=== PATIENT | female | born 1935 | race Caucasian/White ===

== ENCOUNTER 2016-11-01 13:49 | Inpatient (IN) | payer OTHER, BC ==
[~2016-11-01] VITALS: Ht 157.5 cm; Wt 60.9 kg
[2016-11-01] MEDS ORDERED: SODIUM CHLORIDE 0.9% 1000ML 1,000 ML IV STA (14:12)
--- NOTE | 2016-11-01 15:06 | DIAGNOSTIC IMAGING REPORT ---
TWO VIEW CHEST CLINICAL HISTORY: Dyspnea. Fever. FINDINGS: AP and lateral chest radiographs are obtained. No prior studies are available for comparison at the time of dictation. The AP view is severely degraded by patient rotation. The heart appears enlarged and there is atherosclerotic calcification of the thoracic aorta. A large hiatal hernia is suspected. A portion of the colon projects over the left lung base. There is left basilar airspace consolidation. Airspace opacities are also identified at the right lung base. Small pleural effusions are identified. There is no pneumothorax. The skeletal structures are osteopenic. The bony thorax appears intact. Degenerative change and scoliosis are noted in the thoracic spine. IMPRESSION: 1. Suspect a large hiatal hernia. 2. There is left basilar airspace consolidation. Correlated clinically for evidence of pneumonia. Radiographic follow-up to resolution is recommended. 3. There are milder airspace opacities also seen at the right lung base which could represent atelectasis versus pneumonia. 4. Small pleural effusions are noted. Electronically signed by: Edwin Curry M.D. 11/01/2016 3:05 PM Dictated Date/Time: 11/01/2016 3:03 PM
[2016-11-01] MEDS ORDERED: [UNRECOGNIZED DRUG - CODE] PV (15:27)
[2016-11-01] MEDS ORDERED: CYNI1000 SQ (15:27)
[2016-11-01] MEDS ORDERED: [UNRECOGNIZED DRUG - CODE] TOP (15:27)
[2016-11-01] MEDS ORDERED: CEFEPIME IV 1,000 MG in DEXTROSE 5% 100ML 100 ML IV STA (15:28)
[2016-11-01] MEDS ORDERED: LEVAQUIN 500MG / 100ML D5W IV ONE (15:30)
[2016-11-01 15:54] LABS: COMPLETE YES; HEMATOCRIT 40.3 % (37-47); LYMPH % 20.4 %; LYMPH ABS # 1.13 K/uL (1.2-3.4); MEAN CELL VOLUME 90.4 fL (80-100); MEAN CORPUSCULAR HEMOGLOBIN 30.7 pg (25-34); MEAN PLATELET VOLUME 10.1 fL (7.4-10.4); MONO % 17.7 %; NEUT % 61.9 %; PLATELET COUNT 199 K/uL (130-400); RED BLOOD COUNT 4.46 M/uL (4.2-5.4); WHITE BLOOD COUNT 5.55 K/uL (4.8-10.8)
[2016-11-01 16:02] LABS: PARTIAL THROMBOPLASTIN RATIO 1.1; PROTHROMBIN TIME (PATIENT) 10.7 SECONDS (9.0-12.0)
[2016-11-01 16:14] LABS: BUN/CREATININE RATIO 14.1 (10-20); CALCIUM 8.1 mg/dl (8.5-10.1); CREATININE 0.87 mg/dl (0.60-1.20); POTASSIUM 3.9 mmol/L (3.5-5.1)
[2016-11-01 16:19] LABS: ALB/GLOB RATIO 0.8 (0.9-2)
[2016-11-01 16:54] LABS: URINE APPEARANCE CLEAR (CLEAR); URINE BILIRUBIN NEG (NEG); URINE COLOR DK YELLOW; URINE EPITHELIAL CELL AUTO >30 /lpf (0-5); URINE NITRITE NEG (NEG); URINE PH 5.5 (4.5-7.5); URINE SPECIFIC GRAVITY 1.014 (1.000-1.030); UROBILINOGEN NEG (NEG)
[2016-11-01 16:56] LABS: MANUAL MICROSCOPIC REQUIRED? NO; REVIEW REQ? YES
[2016-11-01] MEDS ORDERED: MAGNESIUM HYDROXIDE SUSP 30 ML UDC PO PRN (17:30)
[2016-11-01] MEDS ORDERED: SODIUM CHLORIDE 0.9% 500ML 500 ML IV SCH (17:30)
[2016-11-01] MEDS ORDERED: ACETAMINOPHEN 325 MG TAB PO PRN (17:30)
[2016-11-01] MEDS ORDERED: POLYETHYLENE (MIRALAX) 17 GM PACK PO PRN (17:30)
[2016-11-01] MEDS ORDERED: ALBUT/IPRATROP 3MG/0.5MG NEB 3 ML VIAL INH PRN (17:30)
[2016-11-01] MEDS ORDERED: ONDANSETRON INJ 2 MG/ML 2 ML VIAL IV PRN (17:30)
[2016-11-01] MEDS ORDERED: ALUMINUM/MAGNESIUM/SIMETH (MAALOX MAX) 30 ML UDC PO PRN (17:30)
[2016-11-01] MEDS ORDERED: ACETAMINOPHEN IV 100 ML IV PRN (17:45)
--- NOTE | 2016-11-01 18:02 | History and Physical ---
History & Physical Date & Time of Service: Nov 01, 2016 at 17:33 Chief Complaint: Cough,Fever Primary Care Physician: No Doctor, Assigned History of Present Illness Source: family Ms. Duarte is an 81 y/o female with PMHx of Dementia, NICHO, Breast CA S/P Lumpectomy and in Remission, and S/P Hysterectomy on Topical Hormone Replacements who presents to the ED for a cough, generalized fatigue, and altered mental status since Monday. History obtained from daughter as patient is asleep and minimally wakes up. Daughter states patient was visiting family in [place] last week and was around family members that had URI symptoms. On Monday, she started to have a dry cough that started to become more loose yesterday but she is not coughing anything out. She has progressively gotten weaker over the past couple days and less interactive. Baseline mentation has underlying dementia but is conversational, feeds herself, and ambulates. Associated rhinorrhea and fever that peaked to 100.7 but is improving per family. Had one episode of brown diarrhea today and denies hematochezia/melena. Family feels that she has generalized aches as she is has been saying "ouch" with movements but they are not sure. They state she has not taken in a lot of food or drink and have been spoon feeding her smoothies. They do report a H/O sleep apnea that she used to use BiPAP/CPAP but lost approx 20-30 lbs in a year intentionally with changing to a clean/ketogenic/low carb/gluten free diet and currently not using BiPAP/CPAP at night. In the ED, patient is afebrile and without leukocytosis. She is hypotensive at 90s/60s. She received NSS 1 L and Cefepime. CXR shows L basilar consolidation with mild R lung base opacity. Past Medical/Surgical History Medical Problems: (1) Arthritis Status: Chronic (2) Dementia Status: Chronic Family History Deferred due to AMS Social History Smoking Status: Never Smoker Smokeless Tobacco Use: No Alcohol Use: none Drug Use: none Housing status: lives with family Allergies Coded Allergies: Ceepryn Chloride (Verified Allergy, Unknown, unknown, 11/01/16) Donepezil (Verified Allergy, Unknown, rash, 11/01/16) Moxifloxacin (Verified Allergy, Unknown, unknown, 11/01/16) Home Medications Scheduled Cyanocobalamin (Cyanocobalamin), 1 ML SQ WK Estradiol (Bulk) (Estradiol Concentrate), 1 DOSE PV DIRECTED Progesterone (Bulk) (Progesterone Concentrate), 1 DOSE TOP BID Review of Systems ROS deferred as patient is altered. Per family only complaint was of a vague upset stomach yesterday and an intermittently moist cough. They report fever that peaked at 100.7 Physical Exam Vital Signs Date Time Temp Pulse Resp B/P (MAP) Pulse Ox O2 Delivery O2 Flow Rate FiO2 11/01/16 16:19 92 Nasal Cannula 2.0 11/01/16 16:19 92 Nasal Cannula 2.0 11/01/16 15:40 55 18 98/53 93 Room Air 11/01/16 14:07 76 11/01/16 13:50 37.2 82 20 99/62 90 Room Air General Appearance: no apparent distress, + thin Head: normocephalic, atraumatic Neck: supple, no JVD, trachea midline Respiratory/Chest: no respiratory distress, no accessory muscle use, + decreased breath sounds (throughout), + pertinent finding (course breath sounds hard to appreciate full assessmnet) Cardiovascular: regular rate, rhythm, no gallop, no murmur Abdomen/GI: normal bowel sounds, soft, + pertinent finding (unsure of tenderness as patient withdrew when palpating jones. suprapubically but did the same when assessing for lymphadenopathy of the neck) Extremities/Musculoskelatal: no calf tenderness, no pedal edema Neurologic/Psych: + pertinent finding (somnolent) Skin: normal color, warm/dry Diagnostics Laboratory Results Results Past 24 Hours Test 11/01/16 15:06 11/01/16 16:30 11/01/16 17:16 Range/Units White Blood Count 5.55 4.8-10.8 K/uL Red Blood Count 4.46 4.2-5.4 M/uL Hemoglobin 13.7 12.0-16.0 g/dL Hematocrit 40.3 37-47 % Mean Corpuscular Volume 90.4 80-100 fL Mean Corpuscular Hemoglobin 30.7 25-34 pg Mean Corpuscular Hemoglobin Concent 34.0 32-36 g/dl Platelet Count 199 130-400 K/uL Mean Platelet Volume 10.1 7.4-10.4 fL Neutrophils (%) (Auto) 61.9 % Lymphocytes (%) (Auto) 20.4 % Monocytes (%) (Auto) 17.7 % Eosinophils (%) (Auto) 0.0 % Basophils (%) (Auto) 0.0 % Neutrophils # (Auto) 3.44 1.4-6.5 K/uL Lymphocytes # (Auto) 1.13 1.2-3.4 K/uL Monocytes # (Auto) 0.98 0.11-0.59 K/uL Eosinophils # (Auto) 0.00 0-0.5 K/uL Basophils # (Auto) 0.00 0-0.2 K/uL RDW Standard Deviation 45.5 36.4-46.3 fL RDW Coefficient of Variation 13.7 11.5-14.5 % Immature Granulocyte % (Auto) 0.0 % Immature Granulocyte # (Auto) 0.00 0.00-0.02 K/uL Prothrombin Time 10.7 9.0-12.0 SECONDS Prothromb Time International Ratio 1.0 0.9-1.1 Activated Partial Thromboplast Time 29.5 21.0-31.0 SECONDS Partial Thromboplastin Ratio 1.1 Sodium Level 138 136-145 mmol/L Potassium Level 3.9 3.5-5.1 mmol/L Chloride Level 102 98-107 mmol/L Carbon Dioxide Level 28 21-32 mmol/L Anion Gap 8.0 3-11 mmol/L Blood Urea Nitrogen 12 7-18 mg/dl Creatinine 0.87 0.60-1.20 mg/dl Est Creatinine Clear Calc Drug Dose 44.3 ml/min Estimated GFR () 72.9 Estimated GFR (Non- 62.9 BUN/Creatinine Ratio 14.1 10-20 Random Glucose 90 70-99 mg/dl Calcium Level 8.1 8.5-10.1 mg/dl Total Bilirubin 0.3 0.2-1 mg/dl Aspartate Amino Transf (AST/SGOT) 49 15-37 U/L Alanine Aminotransferase (ALT/SGPT) 28 12-78 U/L Alkaline Phosphatase 51 45-117 U/L Troponin I 0.019 0-0.045 ng/ml Pro-B-Type Natriuretic Peptide 502 0-1800 pg/ml Total Protein 6.3 6.4-8.2 gm/dl Albumin 2.8 3.4-5.0 gm/dl Globulin 3.5 2.5-4.0 gm/dl Albumin/Globulin Ratio 0.8 0.9-2 Urine Color DK YELLOW Urine Appearance CLEAR CLEAR Urine pH 5.5 4.5-7.5 Urine Specific [place] 1.014 1.000-1.030 Urine Protein NEG NEG Urine Glucose (UA) NEG NEG Urine Ketones NEG NEG Urine Occult Blood NEG NEG Urine Nitrite NEG NEG Urine Bilirubin NEG NEG Urine Urobilinogen NEG NEG Urine Leukocyte Esterase TRACE NEG Urine WBC (Auto) 1-5 0-5 /hpf Urine RBC (Auto) 0-4 0-4 /hpf Urine Hyaline Casts (Auto) 1-5 0-5 /lpf Urine Epithelial Cells (Auto) >30 0-5 /lpf Urine Bacteria (Auto) NEG NEG Urine Renal Epithelial Cells 0-5 /lpf Microbiology Results 11/01/16 Blood Culture, Gee Batch Pending 11/01/16 Blood Culture, Gee Batch Pending 11/01/16 Urine Culture, Gee Batch Pending Diagnostic Radiology TWO VIEW CHEST FINDINGS: AP and lateral chest radiographs are obtained. No prior studies are available for comparison at the time of dictation. The AP view is severely degraded by patient rotation. The heart appears enlarged and there is atherosclerotic calcification of the thoracic aorta. A large hiatal hernia is suspected. A portion of the colon projects over the left lung base. There is left basilar airspace consolidation. Airspace opacities are also identified at the right lung base. Small pleural effusions are identified. There is no pneumothorax. The skeletal structures are osteopenic. The bony thorax appears intact. Degenerative change and scoliosis are noted in the thoracic spine. IMPRESSION: 1. Suspect a large hiatal hernia. 2. There is left basilar airspace consolidation. Correlated clinically for evidence of pneumonia. Radiographic follow-up to resolution is recommended. 3. There are milder airspace opacities also seen at the right lung base which could represent atelectasis versus pneumonia. 4. Small pleural effusions are noted. EKG Normal sinus rhythm Normal ECG No previous ECGs available Impression Assessment and Plan Ms. Duarte is an 81 y/o female with PMHx of Dementia, NICHO, Breast CA S/P Lumpectomy and in Remission, and S/P Hysterectomy on Topical Hormone Replacements who presents to the ED for a cough, generalized fatigue, and altered mental status since Monday. Bilateral Pneumonia with Hypotension: Community Acquired - Patient is currently afebrile and without leukocytosis - Will order lactic acid and BCx x 2 - will be skewed as Abx already initiated - Ceftriaxone 1 g IV daily and Zithromax 500 mg IV x 1 then 250 mg daily - Given NSS 1 L in ED - will give NSS 500 mL bolus and NSS at 100 mL/hr x 3 bags - Duonebs ALAN and PRN Metabolic Encephalopathy 2/2 Above Superimposed on Dementia: - Continue to monitor Acute Hypoxic Respiratory Failure with NICHO: - Previously on BiPAP/CPAP but lost weight and currently does not utilize - Possibly hypoxic episode related to this as patient is sleeping during examination DVT Prophylaxis: Heparin 5000 units SC Q12H Code Status: DO NOT RESUSCITATE Disposition: - Monitor rhythm overnight and if uneventful can move to Med/Surg - Daughter requesting to stay with patient and implement 1:1 if family not at bedside due to confusion/pulling tubes - Daughter would like to avoid medicinal means to control agitation/delirium but is agreeable to soft restraints if needed - PT/OT evaluations - patient does live with daughter is normally ambulatory without assistive devices but has a shuffling gait Resident Physician Supervision Note: I was present with PA during the history and exam. I discussed the case with the PA and agree with the findings and plan as documented in the note. Any exceptions or clarifications are listed here: 81 y/o F dementia, NICHO presenting with AMS - lethargy - imaging/labs consistent with acute CAP Unable to obtain Hx from pt - daughter at bedside to provide Hx O/E AAO x 3 S1,2 R - faint Very poor effort - limited exam NT, ND No CCE - pulses present P: Supportive measures - daughter to remain with ot Antibiotics, IVF, scheduled duonebs as she cannot reliably c/o SOB Above discussed with daughter at bedside Documented By: Luigi Prieto Level of Care Telemetry Resuscitation Status DO NOT RESUSCITATE VTE Prophylaxis VTE Risk Assessment Done? Y/N: Yes Risk Level: Moderate Given or contraindicated: Unfractionated heparin SQ
--- NOTE | 2016-11-01 18:12 | EMERGENCY ROOM VISIT NOTE ---
History Report prepared by Lopez: Jens Mckeon Under the Supervision of: Dr. Dimas Huertas D.O. First contact with patient: 13:58 Chief Complaint: COUGH Stated Complaint: COUGH,FEVER Nursing Triage Summary: pt to the ED with a cough since monday here with daughter who she lives with pt has been gettin more weak as well History of Present Illness The patient is a 81 year old female who presents to the Emergency Room with complaints of a persistent illness beginning two days ago. Her symptoms include weakness, fatigue, fevers, runny nose, and cough. Per daughter, the patient has not been talking or interacting much. She states that the patient appears much less alert than normal. She states that the patient's fever peaked at 101 degrees yesterday. The patient's daughter notes that the patient recently returned from a trip to [place] last week. She denies any sore throats. She states that the patient has not been eating much unless spoon feed. The patient's daughter notes that the patient has chronic pain in her knee and hip. The patient denies any chest pain, abdominal pain, urinary symptoms, or headache. HPI limited secondary to dementia. Source of History: patient, family (daughter) Onset: Two days ago Quality: other (illness) Timing: other (persistent) Associated Symptoms: + fevers (101 degrees), + cough, + fatigue, + weakness , No headache, No sorethroat, No chest pain, No abdominal pain, No urinary symptoms Note: The patient also complains of runny nose. She denies any ear pain. Review of Systems ROS limited secondary to dementia. Past Medical & Surgical Medical Problems: (1) Arthritis (2) Dementia (3) Pneumonia Family History Unobtainable secondary to dementia. Social History Occupation Status: retired Current/Historical Medications Scheduled Cyanocobalamin (Cyanocobalamin), 1 ML SQ WK Estradiol (Bulk) (Estradiol Concentrate), 1 DOSE PV DIRECTED Progesterone (Bulk) (Progesterone Concentrate), 1 DOSE TOP BID Allergies Coded Allergies: Ceepryn Chloride (Unverified Allergy, Unknown, unknown, 11/01/16) Donepezil (Unverified Allergy, Unknown, rash, 11/01/16) Moxifloxacin (Verified Allergy, Unknown, unknown, 11/01/16) Physical Exam Vital Signs Date Time Temp Pulse Resp B/P (MAP) Pulse Ox O2 Delivery O2 Flow Rate FiO2 7/11/17 17:29 71 18 96/72 93 Nasal Cannula 2.0 11/01/16 16:19 92 Nasal Cannula 2.0 11/01/16 16:19 92 Nasal Cannula 2.0 11/01/16 15:40 55 18 98/53 93 Room Air 11/01/16 14:07 76 11/01/16 13:50 37.2 82 20 99/62 90 Room Air Physical Exam GENERAL: Chronically ill appearing. Sitting up in bed, disheveled, no acute distress. EYE EXAM: normal conjunctiva, PERRL and EOM's intact OROPHARYNX: no exudate, no erythema, lips, buccal mucosa, and tongue normal and mucous membranes are dry NECK: supple, no nuchal rigidity, no adenopathy, non-tender LUNGS: Poor air movement. Diminished bilaterally at the bases. HEART: no murmurs, S1 normal and S2 normal ABDOMEN: abdomen soft, non-tender, normo-active bowel sounds, no masses, no rebound or guarding. BACK: Back is symmetrical on inspection and there is no deformity, no midline tenderness, no CVA tenderness. SKIN: no rashes and no bruising UPPER EXTREMITIES: upper extremities are grossly normal. LOWER EXTREMITIES: No pitting edema. Calves equal bilaterally. NEURO EXAM: alert able to state name, cranial nerves II-XII intact, normal speech, no weakness of arms, no weakness of legs. Medical Decision & Procedures ER Provider Diagnostic Interpretation: Radiology results as stated below per my review and the radiologist's interpretation: TWO VIEW CHEST FINDINGS: AP and lateral chest radiographs are obtained. No prior studies are available for comparison at the time of dictation. The AP view is severely degraded by patient rotation. The heart appears enlarged and there is atherosclerotic calcification of the thoracic aorta. A large hiatal hernia is suspected. A portion of the colon projects over the left lung base. There is left basilar airspace consolidation. Airspace opacities are also identified at the right lung base. Small pleural effusions are identified. There is no pneumothorax. The skeletal structures are osteopenic. The bony thorax appears intact. Degenerative change and scoliosis are noted in the thoracic spine. IMPRESSION: 1. Suspect a large hiatal hernia. 2. There is left basilar airspace consolidation. Correlated clinically for evidence of pneumonia. Radiographic follow-up to resolution is recommended. 3. There are milder airspace opacities also seen at the right lung base which could represent atelectasis versus pneumonia. 4. Small pleural effusions are noted. Electronically signed by: Edwin Curry M.D. Laboratory Results 11/01/16 15:06 Red Blood Count 4.46, Mean Corpuscular Volume 90.4, Mean Corpuscular Hemoglobin 30.7, Mean Corpuscular Hemoglobin Concent 34.0, Mean Platelet Volume 10.1, Neutrophils (%) (Auto) 61.9, Lymphocytes (%) (Auto) 20.4, Monocytes (%) (Auto) 17.7, Eosinophils (%) (Auto) 0.0, Basophils (%) (Auto) 0.0, Neutrophils # (Auto ) 3.44, Lymphocytes # (Auto) 1.13, Monocytes # (Auto) 0.98, Eosinophils # (Auto ) 0.00, Basophils # (Auto) 0.00 11/01/16 15:06 Test 11/01/16 15:06 11/01/16 16:30 11/01/16 17:55 White Blood Count 5.55 K/uL (4.8-10.8) Red Blood Count 4.46 M/uL (4.2-5.4) Hemoglobin 13.7 g/dL (12.0-16.0) Hematocrit 40.3 % (37-47) Mean Corpuscular Volume 90.4 fL (80-100) Mean Corpuscular Hemoglobin 30.7 pg (25-34) Mean Corpuscular Hemoglobin Concent 34.0 g/dl (32-36) Platelet Count 199 K/uL (130-400) Mean Platelet Volume 10.1 fL (7.4-10.4) Neutrophils (%) (Auto) 61.9 % Lymphocytes (%) (Auto) 20.4 % Monocytes (%) (Auto) 17.7 % Eosinophils (%) (Auto) 0.0 % Basophils (%) (Auto) 0.0 % Neutrophils # (Auto) 3.44 K/uL (1.4-6.5) Lymphocytes # (Auto) 1.13 K/uL (1.2-3.4) Monocytes # (Auto) 0.98 K/uL (0.11-0.59) Eosinophils # (Auto) 0.00 K/uL (0-0.5) Basophils # (Auto) 0.00 K/uL (0-0.2) RDW Standard Deviation 45.5 fL (36.4-46.3) RDW Coefficient of Variation 13.7 % (11.5-14.5) Immature Granulocyte % (Auto) 0.0 % Immature Granulocyte # (Auto) 0.00 K/uL (0.00-0.02) Prothrombin Time 10.7 SECONDS (9.0-12.0) Prothromb Time International Ratio 1.0 (0.9-1.1) Activated Partial Thromboplast Time 29.5 SECONDS (21.0-31.0) Partial Thromboplastin Ratio 1.1 Anion Gap 8.0 mmol/L (3-11) Est Creatinine Clear Calc Drug Dose 44.3 ml/min Estimated GFR () 72.9 Estimated GFR (Non- 62.9 BUN/Creatinine Ratio 14.1 (10-20) Calcium Level 8.1 mg/dl (8.5-10.1) Total Bilirubin 0.3 mg/dl (0.2-1) Aspartate Amino Transf (AST/SGOT) 49 U/L (15-37) Alanine Aminotransferase (ALT/SGPT) 28 U/L (12-78) Alkaline Phosphatase 51 U/L (45-117) Troponin I 0.019 ng/ml (0-0.045) Pro-B-Type Natriuretic Peptide 502 pg/ml (0-1800) Total Protein 6.3 gm/dl (6.4-8.2) Albumin 2.8 gm/dl (3.4-5.0) Globulin 3.5 gm/dl (2.5-4.0) Albumin/Globulin Ratio 0.8 (0.9-2) Urine Color DK YELLOW Urine Appearance CLEAR (CLEAR) Urine pH 5.5 (4.5-7.5) Urine Specific [place] 1.014 (1.000-1.030) Urine Protein NEG (NEG) Urine Glucose (UA) NEG (NEG) Urine Ketones NEG (NEG) Urine Occult Blood NEG (NEG) Urine Nitrite NEG (NEG) Urine Bilirubin NEG (NEG) Urine Urobilinogen NEG (NEG) Urine Leukocyte Esterase TRACE (NEG) Urine WBC (Auto) 1-5 /hpf (0-5) Urine RBC (Auto) 0-4 /hpf (0-4) Urine Hyaline Casts (Auto) 1-5 /lpf (0-5) Urine Epithelial Cells (Auto) >30 /lpf (0-5) Urine Bacteria (Auto) NEG (NEG) Urine Renal Epithelial Cells /lpf (0-5) Laboratory results per my review. Medications Administered Medications (Trade) Dose Ordered Sig/Wade Route Start Time Stop Time Status Last Admin Dose Admin Sodium Chloride 1,000 ml @ 999 mls/hr Q1H1M STAT IV 11/01/16 14:12 11/01/16 15:12 DC 11/01/16 15:04 999 MLS/HR Cefepime HCl 1000 mg/Dextrose 111.3 ml @ 200 mls/hr NOW STAT IV 11/01/16 15:28 11/01/16 16:01 DC 11/01/16 16:38 200 MLS/HR ECG Indication: weakness Rate (beats per minute): 76 Rhythm: sinus rhythm Findings: no ectopy, other (Normal axis) ED Course ED COURSE: Vital signs were reviewed and showed hypotension and hypoxia. The patients medical record was reviewed The above diagnostic studies were performed and reviewed. ED treatments and interventions as stated above. 1404: The patient was evaluated in room B10. A complete history and physical examination was performed. 1412: Ordered Sodium Chloride 1000 ml @ 999 mls/hr IV. 1528: Ordered Cefepime HCl 1000 mg/Dextrose 111.3 mL @ @ 200 mL/hr IV, Levaquin / D5W 500 mg IV. 1632: Upon reevaluation, the patient is resting comfortably. I discussed my findings with the patient and she understands and agrees with the treatment plan. Based on the patients age, coexisting illnesses, exam and lab findings the decision to treat as an inpatient was made. The patient remained stable while under my care. The patient will be evaluated for further management. Medical Decision Differential Diagnosis includes but is not limited to dehydration, stroke, anemia, hypoglycemia, hyponatremia, hypernatremia, urinary tract infection, pneumonia, bronchitis, sepsis, gastroenteritis, additional abdominal pathology, metabolic abnormalities and infections. Patient is an 81-year-old female who presents the ER for altered mental status associated with cough and runny nose and fever. Chest x-ray was obtained and shows bilateral pneumonia. Patient was hypotensive upon presentation with systolic pressures in the 90s. Patient was given IV fluids, and antibiotics. Following ordering Levaquin daughter eventually was able to ascertain from previous records that she was holding the patient had an allergy. Labs were otherwise fairly unremarkable. Family was updated bedside patient was admitted to internal medicine with pneumonia. Consults Time Called: [phone] Consulting Physician: Dr. Prieto -MARGRET Returned Call: [phone] I reviewed the patient's case with Dr. Prieto. MATTEOG will evaluate the patient for further management. Impression Primary Impression: Bilateral pneumonia Additional Impressions: Hypotension Altered mental status Scribe Attestation The scribe's documentation has been prepared under my direction and personally reviewed by me in its entirety. I confirm that the note above accurately reflects all work, treatment, procedures, and medical decision making performed by me. Departure Information Dispostion Being Evaluated By Hospitalist Referrals Tejas Swenson M.D. (PCP) Patient Instructions My [facility] Problem Qualifiers Primary Impression: Bilateral pneumonia Pneumonia type: due to unspecified organism Lung location: unspecified part of lung Qualified Codes: J18.9 - Pneumonia, unspecified organism Additional Impressions: Hypotension Hypotension type: unspecified hypotension type Qualified Codes: I95.9 - Hypotension, unspecified Altered mental status Altered mental status type: unspecified Qualified Codes: R41.82 - Altered mental status, unspecified
--- NOTE | 2016-11-01 19:05 | DIAGNOSTIC IMAGING REPORT ---
RIGHT PELVIS/UNILATERAL HIP 2-3VIEWS CLINICAL HISTORY: Right hip pain. Right hip inverted. COMPARISON: None FINDINGS: Positioning on the AP pelvis radiograph is suboptimal. There is cortical irregularity of the medial aspect of the right pubic bone adjacent to the symphysis pubis. No definite fracture is identified. Alignment right hip is anatomic. IMPRESSION: 1. No acute fracture or dislocation of the right hip. 2. Subtle cortical irregularity of the medial right pubic bone which is equivocal for a fracture. Electronically signed by: Travis Nur M.D. 11/01/2016 7:04 PM Dictated Date/Time: 11/01/2016 7:01 PM
[2016-11-01] MEDS ORDERED: SODIUM CHLORIDE 0.9% 500ML 500 ML IV ONE (19:45)
[2016-11-01 19:53] VITALS: BP 108/60; PULSE 64; TEMP 37.1
[2016-11-01 19:54] VITALS: Ht 157.5 cm; Wt 60.9 kg
[2016-11-01] MEDS ORDERED: AZITHROMYCIN IV 500 MG in DEXTROSE 5% 250ML 250 ML IV ONE (20:00)
[2016-11-01] MEDS: HEPARIN SOD 5000 UNIT/0.5 ML CARP SQ SCH (21:00)
[2016-11-01 21:08] VITALS: PULSE 88; O2SAT 94
[2016-11-01] MEDS: SODIUM CHLORIDE 0.9% 1000ML 1,000 ML IV SCH (21:11)
[2016-11-01 22:05] VITALS: O2SAT 94
[2016-11-01 23:32] VITALS: BP 97/64; PULSE 76; TEMP 36.4; O2SAT 92
[2016-11-02] VITALS (10 sets, daily range): BP systolic 104–132; BP diastolic 62–77; PULSE 70–92; TEMP 36.6–37.1; O2SAT 90–98
[2016-11-02] MEDS: CEFTRIAXONE SOD INJ 1 GM in DEXTROSE 5% ADD-VANTAGE 50ML 50 ML IV SCH (02:45)
[2016-11-02] MEDS: SODIUM CHLORIDE 0.9% 1000ML 1,000 ML IV SCH ×2 (06:38→16:23)
[2016-11-02] MEDS: ALBUT/IPRATROP 3MG/0.5MG NEB 3 ML VIAL INH SCH ×4 (07:24→18:50)
--- NOTE | 2016-11-02 07:42 | Clinical Documentation Query ---
Ms. MONSONROBERTOCHESTERVEL : CLINICAL DOCUMENTATION QUERY Clinical documentation includes a diagnosis of: Acute Hypoxic Respiratory Failure. Additionally includes "no respiratory distress, no accessory muscle use". Patient was neither hypoxic nor tachypneic per EMR documentation available to this reader. No ABG obtained. Due to stringent requirements by our coding department, multiple clinical indicators associated with this diagnosis must be present in order for this to be coded/captured within the medical record. If appropriate, please document 2 or more of the following clinical indicators in daily progress notes and the discharge summary. If you feel the diagnosis of acute respiratory failure was made in error, or do not agree with it, simply discontinue documentation thereof. Acute Respiratory Failure indicators include: * Respirations >28 * Air hunger * Use of accessory muscles of respiration * Inability to speak in full sentences * Cyanosis * Pulse ox <90% RA or <95% on O2 *pH <7.35 or >7.45 * pO2 < 60 mm Hg (or 10mm below COPD patient's baseline) * pCO2 >50mm Hg (or 10mm above COPD patient's baseline) * mechanical ventilation * Increased work of breathing * Tachypnea IF IN AGREEMENT, YOU MUST DOCUMENT ABOVE DIAGNOSTIC STATEMENT IN DAILY PROGRESS NOTES AND DISCHARGE SUMMARY. This document is not part of the patient's record. Thank You, Jaylon Thomas, CARLO [phone]
[2016-11-02 07:49] LABS: HEMATOCRIT 38.5 % (37-47); MEAN CELL VOLUME 90.4 fL (80-100); MEAN CORPUSCULAR HEMOGLOBIN 30.8 pg (25-34); MEAN PLATELET VOLUME 9.8 fL (7.4-10.4); PLATELET COUNT 186 K/uL (130-400); RED BLOOD COUNT 4.26 M/uL (4.2-5.4); WHITE BLOOD COUNT 3.67 K/uL (4.8-10.8)
[2016-11-02 07:57] LABS: BUN/CREATININE RATIO 11.5 (10-20); CALCIUM 7.8 mg/dl (8.5-10.1); CREATININE 0.75 mg/dl (0.60-1.20); POTASSIUM 3.5 mmol/L (3.5-5.1)
[2016-11-02] MEDS ORDERED: PNEUMOCOCCAL ADMINISTRATION CHARGE ONE (08:00)
[2016-11-02] MEDS ORDERED: PNEUMOCOCCAL POLYSACCHARIDES 25 MCG/0.5 ML VIAL/SYR IM. ONE (08:00)
[2016-11-02] MEDS: HEPARIN SOD 5000 UNIT/0.5 ML CARP SQ SCH ×2 (09:00→21:00)
[2016-11-02] MEDS ORDERED: CARVEDILOL 3.125 MG TAB PO ONE (13:45)
[2016-11-02] MEDS: AZITHROMYCIN 250 MG TAB PO SCH (14:03)
--- NOTE | 2016-11-02 15:49 | Progress Note ---
Subjective Date of Service: Nov 02, 2016. Subjective pt is more alert and oriented, daughter at bedside. Pt uses humor to hide her forgetfulness, slight cough, still with [place] oxygen she did have symptomatic run of atrial tachycardia Problem List Medical Problems: (1) Altered mental status Status: Acute (2) Bilateral pneumonia Status: Acute (3) Hypotension Status: Acute Review of Systems Constitutional: + weakness, No fever, No chills Respiratory: + cough, + sputum, No shortness of breath, No dyspnea on exertion Cardiac: No chest pain, No orthopnea, No edema Abdomen: No pain, No nausea, No vomiting, No diarrhea Musculoskeletal: No joint pain, No muscle pain, No swelling Neurologic: + memory loss, + weakness Psychiatric: No depression symptoms, No anhedonism, No anxiety Objective Vital Signs Date Time Temp Pulse Resp B/P (MAP) Pulse Ox O2 Delivery O2 Flow Rate FiO2 11/02/16 12:30 Nasal Cannula 2.0 11/02/16 11:18 88 16 91 Nasal Cannula 1.0 11/02/16 11:18 36.7 92 16 108/69 (82) 92 Nasal Cannula 1.0 11/02/16 11:14 36.7 91 20 132/77 (95) 94 Room Air 11/02/16 07:45 Nasal Cannula 2.0 11/02/16 07:28 36.7 70 16 109/67 (81) 92 Room Air 11/02/16 07:15 90 16 91 Nasal Cannula 1.0 11/02/16 05:05 37.1 70 19 109/66 (80) 90 Nasal Cannula 2.0 11/02/16 04:00 Nasal Cannula 2.0 11/02/16 00:00 Nasal Cannula 2.0 11/01/16 23:32 36.4 76 19 97/64 (75) 92 Room Air 11/01/16 22:05 94 Nasal Cannula 2.0 11/01/16 21:08 88 16 94 Nasal Cannula 2.0 11/01/16 19:53 37.1 64 84 108/60 11/01/16 18:43 68 18 104/59 95 Nasal Cannula 2.0 11/01/16 17:29 71 18 96/72 93 Nasal Cannula 2.0 11/01/16 16:19 92 Nasal Cannula 2.0 11/01/16 16:19 92 Nasal Cannula 2.0 Physical Exam General Appearance: WD/WN, + mild distress Eyes: PERRL, EOMI Neck: supple, no JVD Respiratory/Chest: + decreased breath sounds, + rhonchi Cardiovascular: regular rate, rhythm, no murmur Abdomen: normal bowel sounds, non tender, soft Extremities: no pedal edema, no calf tenderness Neurologic/Psychiatric: alert, normal mood/affect Laboratory Results Last 24 Hours Test 11/01/16 16:30 11/01/16 17:55 11/01/16 23:18 11/02/16 07:05 Urine Color DK YELLOW Urine Appearance CLEAR Urine pH 5.5 Urine Specific [place] 1.014 Urine Protein NEG Urine Glucose (UA) NEG Urine Ketones NEG Urine Occult Blood NEG Urine Nitrite NEG Urine Bilirubin NEG Urine Urobilinogen NEG Urine Leukocyte Esterase TRACE Urine WBC (Auto) 1-5 /hpf Urine RBC (Auto) 0-4 /hpf Urine Hyaline Casts (Auto) 1-5 /lpf Urine Epithelial Cells (Auto) >30 /lpf Urine Bacteria (Auto) NEG Urine Renal Epithelial Cells /lpf Lactic Acid Level 1.4 mmol/L Troponin I 0.020 ng/ml White Blood Count 3.67 K/uL Red Blood Count 4.26 M/uL Hemoglobin 13.1 g/dL Hematocrit 38.5 % Mean Corpuscular Volume 90.4 fL Mean Corpuscular Hemoglobin 30.8 pg Mean Corpuscular Hemoglobin Concent 34.0 g/dl RDW Standard Deviation 45.2 fL RDW Coefficient of Variation 13.7 % Platelet Count 186 K/uL Mean Platelet Volume 9.8 fL Sodium Level 142 mmol/L Potassium Level 3.5 mmol/L Chloride Level 106 mmol/L Carbon Dioxide Level 29 mmol/L Anion Gap 7.0 mmol/L Blood Urea Nitrogen 9 mg/dl Creatinine 0.75 mg/dl Est Creatinine Clear Calc Drug Dose 47.3 ml/min Estimated GFR () 87.3 Estimated GFR (Non- 75.3 BUN/Creatinine Ratio 11.5 Random Glucose 86 mg/dl Calcium Level 7.8 mg/dl Assessment and Plan 81 F with pneumonia and toxic encephalopathy, with PMHx of Dementia, NICHO, Breast CA in remission since lumpectomy and treatment Bilateral Pneumonia - Ceftriaxone and Zithromax - Duonebs ALAN and PRN atrial tachycardia, maybe from physiologic stressor, will use one dose of coreg tonight and follow Metabolic Encephalopathy improved with treatment DVT Prophylaxis: Heparin 5000 units SC Q12H Code Status: DO NOT RESUSCITATE - PT/OT evaluations - patient does live with daughter is normally ambulatory without assistive devices
[2016-11-02] MEDS ORDERED: AZITHROMYCIN IV 250 MG in DEXTROSE 5% 250ML 250 ML IV SCH (20:00)
[2016-11-03] VITALS (13 sets, daily range): BP systolic 104–128; BP diastolic 67–81; PULSE 72–112; TEMP 36.7–37.1; O2SAT 89–96
[2016-11-03] MEDS: CEFTRIAXONE SOD INJ 1 GM in DEXTROSE 5% ADD-VANTAGE 50ML 50 ML IV SCH (03:23)
[2016-11-03 05:55] LABS: MEAN CELL VOLUME 90.1 fL (80-100); MEAN CORPUSCULAR HEMOGLOBIN 30.5 pg (25-34); MEAN CORPUSCULAR HGB CONC 33.8 g/dl (32-36); MEAN PLATELET VOLUME 9.6 fL (7.4-10.4); PLATELET COUNT 192 K/uL (130-400); RED BLOOD COUNT 4.33 M/uL (4.2-5.4); WHITE BLOOD COUNT 4.06 K/uL (4.8-10.8)
[2016-11-03 06:27] LABS: BUN/CREATININE RATIO 9.7 (10-20); CALCIUM 8.2 mg/dl (8.5-10.1); CREATININE 0.68 mg/dl (0.60-1.20); POTASSIUM 3.5 mmol/L (3.5-5.1)
[2016-11-03 06:37] LABS: THYROID STIMULATING HORMONE 2.02 uIu/ml (0.300-4.500)
[2016-11-03] MEDS: ALBUT/IPRATROP 3MG/0.5MG NEB 3 ML VIAL INH SCH ×4 (06:58→18:46)
[2016-11-03] MEDS: HEPARIN SOD 5000 UNIT/0.5 ML CARP SQ SCH ×2 (07:06→21:00)
[2016-11-03] MEDS: CARVEDILOL 3.125 MG TAB PO SCH ×2 (08:23→21:00)
[2016-11-03] MEDS: AZITHROMYCIN 250 MG TAB PO SCH (11:39)
[2016-11-03] MEDS ORDERED: OPTIRAY 320 IV PRN (15:45)
--- NOTE | 2016-11-03 15:47 | Progress Note ---
Subjective Date of Service: Nov 03, 2016. Subjective pt remains improved but still requiring oxygen for supplementation, did not have smoking history and recent trip/long car ride, no cough today and confusion is less family updated at bedside Problem List Medical Problems: (1) Altered mental status Status: Acute (2) Bilateral pneumonia Status: Acute (3) Hypotension Status: Acute Review of Systems Constitutional: + weakness, No fever, No chills Respiratory: + dyspnea on exertion, No cough, No shortness of breath Cardiac: No chest pain, No orthopnea, No edema, No claudication Abdomen: No pain, No nausea, No vomiting, No diarrhea Musculoskeletal: + joint pain Neurologic: + memory loss, + weakness Psychiatric: No depression symptoms, No anhedonism Objective Vital Signs Date Time Temp Pulse Resp B/P (MAP) Pulse Ox O2 Delivery O2 Flow Rate FiO2 11/03/16 15:36 36.7 87 18 104/77 (86) 90 Nasal Cannula 3.0 11/03/16 15:20 86 16 92 Nasal Cannula 3.0 11/03/16 12:58 76 16 89 Nasal Cannula 3.0 11/03/16 12:00 Nasal Cannula 2.0 11/03/16 11:04 37.0 76 18 104/68 (80) 91 Nasal Cannula 3.0 11/03/16 08:00 Nasal Cannula 2.0 11/03/16 07:58 36.8 112 18 120/67 (84) 92 Nasal Cannula 3.0 11/03/16 07:02 73 16 91 Nasal Cannula 3.0 11/03/16 04:04 37.1 72 16 111/74 (86) 94 Nasal Cannula 3.0 11/03/16 04:00 Nasal Cannula 2.0 11/03/16 00:00 Nasal Cannula 2.0 11/02/16 23:36 36.9 79 16 117/73 (88) 93 Nasal Cannula 2.0 11/02/16 20:00 Nasal Cannula 2.0 11/02/16 18:50 86 18 93 Nasal Cannula 1.0 11/02/16 16:00 Nasal Cannula 2.0 11/02/16 15:49 36.6 77 20 104/62 (76) 98 Nasal Cannula 2.0 Physical Exam General Appearance: WD/WN, + mild distress Eyes: PERRL, EOMI Neck: supple, no adenopathy, no JVD Respiratory/Chest: chest non-tender, + respiratory distress (mild), + pertinent finding (poor air movement ) Cardiovascular: regular rate, rhythm, + systolic murmur Abdomen: normal bowel sounds, non tender, soft Extremities: no pedal edema, no calf tenderness Neurologic/Psychiatric: alert, oriented x 3 Laboratory Results Last 24 Hours Test 11/03/16 05:26 White Blood Count 4.06 K/uL Red Blood Count 4.33 M/uL Hemoglobin 13.2 g/dL Hematocrit 39.0 % Mean Corpuscular Volume 90.1 fL Mean Corpuscular Hemoglobin 30.5 pg Mean Corpuscular Hemoglobin Concent 33.8 g/dl RDW Standard Deviation 45.1 fL RDW Coefficient of Variation 13.5 % Platelet Count 192 K/uL Mean Platelet Volume 9.6 fL Sodium Level 143 mmol/L Potassium Level 3.5 mmol/L Chloride Level 106 mmol/L Carbon Dioxide Level 31 mmol/L Anion Gap 6.0 mmol/L Blood Urea Nitrogen 7 mg/dl Creatinine 0.68 mg/dl Est Creatinine Clear Calc Drug Dose 56.6 ml/min Estimated GFR () 95.8 Estimated GFR (Non- 82.6 BUN/Creatinine Ratio 9.7 Random Glucose 93 mg/dl Calcium Level 8.2 mg/dl Thyroid Stimulating Hormone (TSH) 2.020 uIu/ml Assessment and Plan 81 F with pneumonia and toxic encephalopathy, with PMHx of Dementia, NICHO, Breast CA in remission since lumpectomy and treatment Bilateral Pneumonia - Ceftriaxone and Zithromax - Duonebs ALAN and PRN, pt still has significant hypoxia and need for supplementation, will perform CTA to [facility] given recent longer trip, also may better quantify her pneumonia atrial tachycardia, maybe from physiologic stressor, will use one dose of coreg tonight and follow Metabolic Encephalopathy improved with treatment, maybe from infection or maybe from her lower oxygen level DVT Prophylaxis: Heparin 5000 units SC Q12H Code Status: DO NOT RESUSCITATE equivocal right pubic fracture clinically improving - PT/OT evaluations - patient does live with daughter is normally ambulatory without assistive devices and is quite active
--- NOTE | 2016-11-03 16:25 | DIAGNOSTIC IMAGING REPORT ---
CT ANGIOGRAM OF THE CHEST CLINICAL HISTORY: Atypical chest pain. COMPARISON STUDY: Chest x-ray dated 11/01/2016. TECHNIQUE: Following the IV administration of 119 cc of Optiray 320, CT angiogram of the chest was performed from the upper abdomen to the thoracic inlet utilizing the pulmonary embolus protocol. Images are reviewed in the axial, sagittal, and coronal planes. 3-D MIPS images are created and assessed. IV contrast was administered without complication. The examination is degraded by streak artifact and the patient's arms which could not be elevated above the chest. CT DOSE: 252.57 mGy.cm FINDINGS: Thyroid: Imaged portions of the thyroid gland are normal in size and attenuation. Thoracic aorta: There is atherosclerotic calcification of the thoracic aorta, which is normal in caliber and demonstrates standard 3-vessel arch anatomy. No dissection is seen. Pulmonary vasculature: The pulmonary trunk is normal in caliber. There are no filling defects identified in main, lobar, or proximal segmental pulmonary branches to suggest pulmonary embolus. Evaluation of the peripheral branches is degraded by streak and motion artifact. Heart: The heart is normal in size and there is trace pericardial fluid. There are coronary artery calcifications. Lungs and pleural spaces: Evaluation of the lung parenchyma is degraded by streak and motion artifact. Apical scarring is observed. No airspace consolidation is seen typical for pneumonia. There are trace pleural effusions. Segmental atelectasis is identified in the right lower lobe, likely related to the large hiatal hernia. Subsegmental atelectasis is seen at the left lung base. A 2 mm pulmonary nodule is seen in the right lower lobe image #117. The trachea and central airways are clear. Mediastinum: There is no mediastinal lymphadenopathy. Belle: Clear. Axillae: There is no axillary lymphadenopathy. Upper abdomen: There is a large hiatal hernia, which contains the entire stomach, the pancreatic tail, and a segment of the colon. Scattered hepatic cysts measure up to 4.7 cm. The partially imaged kidneys demonstrate cortical atrophy. Skeletal structures: The skeletal structures are osteopenic. Degenerative change and hyperkyphosis are noted in the thoracic spine. There are mild superior endplate compression deformities of T2, T3, T4, and T5. No lytic or blastic bony lesions are seen. IMPRESSION: 1. Streak and motion degraded examination. 2. There is no evidence of pulmonary embolus in the main, lobar, or proximal segmental pulmonary arteries. 3. There are trace pleural effusions. No airspace consolidation is seen typical for pneumonia. 4. There is a large hiatal hernia as above. 5. Segmental atelectasis is seen at the right lung base and there is subsegmental atelectasis at the left lung base. This is likely related to mass effect from the hiatal hernia. 6. Additional findings as above. Electronically signed by: Edwin Curry M.D. 11/03/2016 4:24 PM Dictated Date/Time: 11/03/2016 4:11 PM
[2016-11-03] MEDS ORDERED: NURSING VERBAL MED ORDER ONE (22:00)
[2016-11-03] MEDS: POTASSIUM CHLR 10MEQ / WTR IV SCH ×2 (22:18→23:52)
[2016-11-04] VITALS (8 sets, daily range): BP systolic 105–108; BP diastolic 66–75; PULSE 73–82; TEMP 36.2–36.9; O2SAT 85–94
[2016-11-04] MEDS: CEFTRIAXONE SOD INJ 1 GM in DEXTROSE 5% ADD-VANTAGE 50ML 50 ML IV SCH (03:08)
[2016-11-04 06:38] LABS: HEMATOCRIT 37.5 % (37-47); MEAN CELL VOLUME 89.7 fL (80-100); MEAN CORPUSCULAR HEMOGLOBIN 30.6 pg (25-34); MEAN CORPUSCULAR HGB CONC 34.1 g/dl (32-36); MEAN PLATELET VOLUME 9.8 fL (7.4-10.4); PLATELET COUNT 196 K/uL (130-400); RED BLOOD COUNT 4.18 M/uL (4.2-5.4); WHITE BLOOD COUNT 3.65 K/uL (4.8-10.8)
[2016-11-04 07:07] LABS: BUN/CREATININE RATIO 8.8 (10-20); CALCIUM 8.4 mg/dl (8.5-10.1); CREATININE 0.78 mg/dl (0.60-1.20); POTASSIUM 3.6 mmol/L (3.5-5.1)
[2016-11-04] MEDS: ALBUT/IPRATROP 3MG/0.5MG NEB 3 ML VIAL INH SCH ×3 (07:14→11:27)
[2016-11-04] MEDS: HEPARIN SOD 5000 UNIT/0.5 ML CARP SQ SCH (07:33)
[2016-11-04] MEDS: CARVEDILOL 3.125 MG TAB PO SCH (08:20)
[2016-11-04] MEDS: AZITHROMYCIN 250 MG TAB PO SCH (10:42)
[2016-11-04] MEDS ORDERED: DICLOFENAC SOD 1% GEL 100 GM TUBE EXT PRN (11:30)
[2016-11-04] MEDS ORDERED: IPRA1AER2 INH (11:58)
[2016-11-04] MEDS ORDERED: OXGN (11:58)
[2016-11-04] MEDS ORDERED: AZIT250T PO (11:58)
--- NOTE | 2016-11-04 11:59 | Discharge Instructions ---
Discharge Instructions Date of Service Nov 04, 2016. Admission Reason for Admission: Pneumonia Discharge Discharge Diagnosis / Problem: pneumonia, low oxygen level Discharge Goals Goal(s): Diagnostic testing, Therapeutic intervention Activity Recommendations Activity Limitations: resume your previous activity . Current Hospital Diet Patient's current hospital diet: Gluten Free Diet Discharge Diet Recommended Diet: Regular Diet Pending Studies Studies pending at discharge: no Medical Emergencies . Who to Call and When: Medical Emergencies: If at any time you feel your situation is an emergency, please call 911 immediately. . Non-Emergent Contact Non-Emergency issues call your: Primary Care Provider Call Non-Emergent contact if: temperature is above 101 . . "Provider Documentation" section prepared by Roney Hirsch. . VTE Core Measure Inpt VTE Proph given/why not?: Unfractionated heparin SQ
--- NOTE | 2016-11-04 14:04 | Discharge Summary ---
Discharge Summary Date of Service Nov 04, 2016. Discharge Summary Admission Date: Nov 01, 2016 at 19:22 Discharge Date: Nov 04, 2016 Discharge Disposition: Home with services Principal Diagnosis: pneumonia, hypoxic acute on chronic respiratory failure Procedures: CT chest no pe seen Medication Reconciliation New Medications: Azithromycin (Zithromax) 250 Mg Tab 250 MG PO DAILY, #4 TAB Home O2 Therapy (Oxygen) Gas 3 LITERS NA CONTINOUS for 365 Days Ipratropium-Albuterol (Combivent Respimat) 1 Aer Aer 1 PUFFS INH QID, #1 INH Continued Medications: Cyanocobalamin (Cyanocobalamin) 1,000 Mcg/Ml Inj 1 ML SQ WK Estradiol (Bulk) (Estradiol Concentrate) 10 % Cre 1 DOSE PV DIRECTED Progesterone (Bulk) (Progesterone Concentrate) 40 % Cre 1 DOSE TOP BID Discharge Exam Review of Systems: Constitutional: No fever, No chills Respiratory: + dyspnea on exertion, No cough, No sputum Cardiovascular: No chest pain, No orthopnea, No PND Physical Exam: General Appearance: WD/WN, + mild distress Neck: supple, thyroid normal Respiratory/Chest: chest non-tender, lungs clear Cardiovascular: regular rate, rhythm, + systolic murmur Extremities: normal inspection, no calf tenderness, normal capillary refill Hospital Course 81 F with pneumonia and toxic encephalopathy, with PMHx of Dementia, NICHO, Breast CA in remission since lumpectomy and treatment Bilateral Pneumonia - did improve on Ceftriaxone and Zithromax, will de escalate to zithromax on discharge - Duonebs ALAN and PRN, pt still has significant hypoxia and needs 3 liters to sustain saturation >90, maybe acute injury from pneumonia, pt is not a smoker or ever was did have second hand smoke exposure, consideration of COPD from this , as CTA negative for PE or fibrosis atrial tachycardia, maybe from physiologic stressor,responded to one dose of coreg with no recurrences Metabolic Encephalopathy improved with treatment, maybe from infection or maybe from her lower oxygen level Code Status: DO NOT RESUSCITATE equivocal right pubic fracture clinically improving, no real limitations at pt from this Total Time Spent: Greater than 30 minutes This includes examination of the patient, discharge planning, medication reconciliation, and communication with other providers. Discharge Instructions Please refer to the electronic Patient Visit Report (Discharge Instructions) for additional information. Additional Copies To Florentin Williamson M.D.
== END 2016-11-04 16:00 | disposition home or self-care (01) | DRG 193 ==
LOC: C.EDB 13:50 → ENRESERV 17:54 → C.MED 19:22
PROVIDERS: ADMIT Internal Medicine; ATTEND Internal Medicine
DX: J18.9 Pneumonia, unspecified organism (principal); G93.41 Metabolic encephalopathy; I47.1 Supraventricular tachycardia; F03.90 Unspecified dementia, unspecified severity, without behavioral disturbance, psychotic disturbance, mood disturbance, and anxiety; I95.9 Hypotension, unspecified; G47.33 Obstructive sleep apnea (adult) (pediatric); Z85.3 Personal history of malignant neoplasm of breast; Z79.890 Hormone replacement therapy; M19.90 Unspecified osteoarthritis, unspecified site; Z66 Do not resuscitate

== ENCOUNTER → 2016-11-12 | Outpatient (CLI) | payer OTHER, BC ==
[~2016-11-12] MED LIST: AZIT250T PO; CYNI1000 SQ; IPRA1AER2 INH; OXGN; [UNRECOGNIZED DRUG - CODE] PV; [UNRECOGNIZED DRUG - CODE] TOP
[2016-11-12 13:04] LABS: URINE APPEARANCE CLEAR (CLEAR); URINE BILIRUBIN NEG (NEG); URINE COLOR YELLOW; URINE NITRITE NEG (NEG); URINE PH 5.5 (4.5-7.5); URINE SPECIFIC GRAVITY 1.012 (1.000-1.030); UROBILINOGEN NEG (NEG)
[2016-11-12 13:35] LABS: MANUAL MICROSCOPIC REQUIRED? NO; REVIEW REQ? NO
== END | disposition home or self-care (01) ==
LOC: C.LABSPEC 10:02
PROVIDERS: ATTEND Nurse Practitioner
DX: R53.81 Other malaise (principal); J18.9 Pneumonia, unspecified organism

== ENCOUNTER 2019-02-19 17:58 | Inpatient (IN) ==
[2019-02-19] MEDS ORDERED: SODIUM CHLORIDE 0.9% 1000ML 1,000 ML IV SCH (18:31)
[2019-02-19] MEDS ORDERED: ONDANSETRON INJ 2 MG/ML 2 ML VIAL IV STA (18:33)
--- NOTE | 2019-02-19 19:06 | XRay Report ---
XR chest 1V portable HISTORY: Sepsis COMPARISON: Chest CTA 11/03/2016. FINDINGS: There is again noted a large hiatus hernia. No pneumothorax. Suspect a trace right pleural effusion. Right basilar densities remain unchanged in favor atelectasis from the large hiatus hernia. The heart is normal in size. The stomach appears to be gas-filled and mildly distended within the he rnia. IMPRESSION: Large hiatus hernia containing a distended gas-filled loop of bowel which may represent the stomach. Electronically signed by: Jorge Jalloh M.D. 02/19/2019 7:04 PM
[2019-02-19 20:02] LABS: Hematocrit (blood only) 43.9 % (37-47); Hemoglobin 14.8 g/dL (12.0-16.0); Immature Granulocytes # (auto) 0.04 K/uL (0.00-0.02); Immature Granulocytes % (auto) 0.3 %; Lymphocytes # (auto) 1.05 K/uL (1.2-3.4); Lymphocytes % (auto) 8.5 %; Mean Corpuscular Hgb Conc 33.7 g/dL (32-36); Mean Corpuscular Volume 91.8 fL (80-100); Monocytes % (auto) 7.3 %; Neutrophils # (auto) 10.37 K/uL (1.4-6.5); Neutrophils % (auto) 83.9 %; Platelet Count 301 K/uL (130-400); RDW Coefficient of Variation 13.3 % (11.5-14.5); RDW Standard Deviation 44.6 fL (36.4-46.3); Red Blood Count 4.78 M/uL (4.2-5.4); White Blood Count 12.36 K/uL (4.8-10.8)
[2019-02-19 20:14] LABS: INR 1.1 (0.9-1.1); Partial Thromboplastin Ratio 0.9; Partial Thromboplastin Time 25.4 Seconds (21.0-31.0); Prothrombin Time 10.8 Seconds (9.0-12.0)
[2019-02-19 20:23] LABS: Alanine Aminotransferase 18 U/L (12-78); Albumin Level 3.5 gm/dl (3.4-5.0); Aspartate Aminotransferase 14 U/L (15-37); BUN Creatinine Ratio 15.7 (10-20); Blood Urea Nitrogen 16 mg/dl (7-18); Calcium 9.7 mg/dl (8.5-10.1); Carbon Dioxide 30 mmol/L (21-32); Chloride 102 mmol/L (98-107); Creatinine Clr Calc Pharmacy 33.6 ml/min; Est GFR (African American) 59.3; Est GFR (Non-African American) 51.2; Glucose 153 mg/dl (70-99); Magnesium 2.2 mg/dl (1.8-2.4); Potassium 3.3 mmol/L (3.5-5.1); Sodium 139 mmol/L (136-145)
[2019-02-19 20:26] LABS: Albumin Globulin Ratio 0.9 (0.9-2); Alkaline Phosphatase 76 U/L (45-117); Bilirubin,Total 0.4 mg/dl (0.2-1); Globulin 3.9 gm/dl (2.5-4.0); Total Protein 7.4 gm/dl (6.4-8.2); Troponin I < 0.015 ng/ml (0-0.045)
--- NOTE | 2019-02-19 22:06 | CT Scan Report ---
CT chest wo con, CT abd pelvis wo con CT DOSE: 369.65 mGy.cm HISTORY: hiatal hernia , vomiting eval for obst TECHNIQUE: Multiaxial CT images of the chest, abdomen, pelvis were performed without contrast. A dos e lowering technique was utilized adhering to the principles of ALARA. COMPARISON: Chest CTA 11/03/2016. FINDINGS: Chest CT: No pneumothorax. The central airways are patent. Small cluster of groundglass nodular densi ties within the right upper lobe with the largest measuring 7 mm. These favor mild inflammatory/infec tious change. Bilateral lower lobe densities likely represent compressive atelectasis from the large hiatus hernia. Trace left pleural effusion, unchanged. The heart is normal in size. There is mild mas s effect along the posterior heart from the large hiatus hernia. Normal caliber thoracic aorta. Mildl y distended and fluid-filled esophagus. No significant mediastinal or hilar lymphadenopathy. Markedly distended gas and fluid-filled stomach within the large hiatus hernia. No suspicious lytic or blasti c osseous lesions within the visualized osseous structures of the chest. Abdomen/pelvis CT: No pneumoperitoneum. No pneumatosis. No suspicious lytic or blastic osseous lesion s. Markedly distended gas and fluid-filled stomach within the large hiatus hernia. The gastric antrum and proximal duodenum or also gas-filled and distended below the level of the diaphragm. The second portion of the duodenum is decompressed. Although, this does not clearly represent a transition point as there are multiple mildly distended gas-filled loops of large and small bowel seen throughout the abdomen.. However, the distended stomach is out of portion to the remaining small bowel and therefor e the possibility of a gastric outlet obstruction secondary to the hiatus hernia still remains in the differential diagnosis. A few hypodense lesions within the liver likely representing cysts. The larg est in the right hepatic lobe measures 3.6 cm. The gallbladder, pancreas, spleen, adrenal glands, lef t kidney are unremarkable. There is also a cyst within the upper pole the right kidney, unchanged. No retroperitoneal lymphadenopathy. The bladder is unremarkable. The uterus is surgically absent. Subop timal evaluation for bowel pathology due to the lack of intravenous and oral contrast. However, there is no definite bowel wall thickening. Multiple colonic diverticula. Moderate well-formed stool withi n the distal colon and rectum. IMPRESSION: 1. Markedly distended gas and fluid-filled stomach within the large hiatus hernia. The gastric antrum and proximal duodenum or also gas-filled and distended below the level of the diaphragm. The second portion of the duodenum is decompressed. Although, this does not clearly represent a transition point as there are multiple mildly distended gas-filled loops of large and small bowel seen throughout the abdomen. These findings raise the possibility of an ileus. However, the distended stomach is out of portion to the remaining small bowel and therefore the possibility of a gastric outlet obstruction se condary to the hiatus hernia still remains in the differential diagnosis. Surgical consultation recom mended. 2. Small cluster of groundglass nodular densities within the right upper lobe with the largest measur ing 7 mm. These favor mild inflammatory/infectious change. 3. Trace left pleural effusion. 4. Mild mass effect along the posterior heart from the large hiatus hernia. 5. Additional findings as described above. Electronically signed by: Jorge Jalloh M.D. 02/19/2019 10:03 PM
[2019-02-19 22:36] LABS: Appearance Urine Cloudy (Clear); Bacteria Urine Automated Negative (Negative); Bilirubin Urine Negative (Negative); Blood Urine Negative (Negative); Color Urine Dark Yellow; Epithelial Cell Urine Auto 20-30 /lpf (0-5); Glucose Urine UA Negative (Negative); Ketones Urine 1+ (Negative); Leukocyte Esterase Urine Negative (Negative); Nitrite Urine Negative (Negative); RBC Urine Automated 0-4 /hpf (0-4); Specific Gravity Urine 1.021 (1.000-1.030); Urobilinogen Urine Negative (Negative); pH Urine 7.5 (4.5-7.5)
[2019-02-19 22:40] LABS: Protein Urine Negative (Negative); Sulfosalicylic Acid Urine Negative (Negative)
--- NOTE | 2019-02-20 00:44 | Emergency Department Note ---
Entered by Alexandria Bear acting as a scribe for History of Present Illness General Chief complaint: Vomiting Stated complaint: VOMITING, DEHYDRATION Time Seen by Provider: 02/19/19 18:10 Source: patient and family (daughter) Mode of arrival: wheelchair Limitations: other (dementia) History of Present Illness Onset (ago): day(s) 1 Location: abdomen Radiation: non-radiation Pain Consistency: + constant Relieved By: + none Exacerbated By: + none Associated symptoms: + fever/chills and + other (-hematochezia, -melena, - hematemesis) Treatments prior to arrival: none The patient is an 83 year old female who presents to the ED with complaints of vomiting since 1600 yesterday. She is accompanied by her daughter and son-in-law. Her daughter notes she has a history of dementia and the patient did not sleep last night because of vomiting. The daughter checked her temperature at home earlier today and states she had a low grade fever. The vomit has been brown in color. The daughter has not seen any blood in the vomit. She last vomited around 1730 this evening. Her daughter denies any recent melena or hematochezia. The patient does not take a daily blood thinner. She has no history of previous bowel obstructions. The daughter reports the patient has a left sided deficit and has possibly had several "mini-strokes" in the past. Home Medications Home Medications Medication Instructions Recorded Confirmed Type estradiol 1 g VAGINAL DAILY 02/19/19 02/19/19 History progesterone micronized 4 % VAGINAL BID 02/19/19 02/19/19 History Allergies Allergy/AdvReac Type Severity Reaction Status Date / Time donepezil Allergy Unknown rash Verified 02/19/19 23:19 moxifloxacin Allergy Unknown unknown Verified 02/19/19 23:19 Ceepryn Chloride Allergy Unknown unknown Uncoded 02/19/19 23:19 Past Med/Surg History Medical History Hiatal hernia History of hysterectomy Social History Feels Safe at Home: Yes Smoking Status: Never smoker Review of Systems See HPI for pertinent positives & negatives. Unobtainable due to cognitive status Physical Exam Vital Signs Vital Signs - 24 hr 02/19/19 18:03 02/19/19 18:59 02/19/19 19:02 Temperature 36.8 C Temperature Source Oral Sepsis Recent Fever Within 48 Hours No Sepsis New/Unexplained Change in Mental Status No Sepsis Action Taken by Nursing No Action Required Pulse Rate 111 H 67 Pulse Rate [Finger] Pulse Rate from SpO2 Sensor 67 Pulse Rhythm Regular Pulse Strength Normal Respiratory Rate 20 15 Respiratory Effort / Characteristics Non-Labored Spontaneous Respiratory Depth Normal Respiratory Pattern Regular Blood Pressure 114/65 142/74 H Blood Pressure [Right Arm] Blood Pressure Mean 81 96 Blood Pressure Mean [Right Arm] Blood Pressure Position Sitting Pulse Oximetry 96 95 94 Oxygen Delivery Method Room Air Room Air 02/19/19 19:15 02/19/19 19:30 02/19/19 19:45 Temperature Temperature Source Sepsis Recent Fever Within 48 Hours Sepsis New/Unexplained Change in Mental Status Sepsis Action Taken by Nursing Pulse Rate 64 70 71 Pulse Rate [Finger] Pulse Rate from SpO2 Sensor 65 70 71 Pulse Rhythm Pulse Strength Respiratory Rate 15 21 19 Respiratory Effort / Characteristics Respiratory Depth Respiratory Pattern Blood Pressure 127/74 130/66 143/73 H Blood Pressure [Right Arm] Blood Pressure Mean 91 87 96 Blood Pressure Mean [Right Arm] Blood Pressure Position Pulse Oximetry 91 91 89 L Oxygen Delivery Method 02/19/19 20:15 02/19/19 20:27 02/19/19 20:30 Temperature Temperature Source Sepsis Recent Fever Within 48 Hours Sepsis New/Unexplained Change in Mental Status Sepsis Action Taken by Nursing Pulse Rate 70 68 66 Pulse Rate [Finger] Pulse Rate from SpO2 Sensor 70 68 66 Pulse Rhythm Pulse Strength Respiratory Rate 19 17 22 Respiratory Effort / Characteristics Respiratory Depth Respiratory Pattern Blood Pressure 112/79 117/62 Blood Pressure [Right Arm] Blood Pressure Mean 90 80 Blood Pressure Mean [Right Arm] Blood Pressure Position Pulse Oximetry 90 90 90 Oxygen Delivery Method 02/19/19 20:45 02/19/19 21:00 02/19/19 21:15 Temperature Temperature Source Sepsis Recent Fever Within 48 Hours Sepsis New/Unexplained Change in Mental Status Sepsis Action Taken by Nursing Pulse Rate 68 67 66 Pulse Rate [Finger] Pulse Rate from SpO2 Sensor 68 66 65 Pulse Rhythm Pulse Strength Respiratory Rate 18 16 20 Respiratory Effort / Characteristics Respiratory Depth Respiratory Pattern Blood Pressure 119/72 130/73 122/62 Blood Pressure [Right Arm] Blood Pressure Mean 87 92 82 Blood Pressure Mean [Right Arm] Blood Pressure Position Pulse Oximetry 91 91 92 Oxygen Delivery Method 02/19/19 21:37 02/19/19 21:45 02/19/19 22:00 Temperature Temperature Source Sepsis Recent Fever Within 48 Hours Sepsis New/Unexplained Change in Mental Status Sepsis Action Taken by Nursing Pulse Rate 67 67 63 Pulse Rate [Finger] Pulse Rate from SpO2 Sensor Pulse Rhythm Pulse Strength Respiratory Rate 19 17 18 Respiratory Effort / Characteristics Respiratory Depth Respiratory Pattern Blood Pressure Blood Pressure [Right Arm] Blood Pressure Mean Blood Pressure Mean [Right Arm] Blood Pressure Position Pulse Oximetry Oxygen Delivery Method 02/19/19 22:01 02/19/19 22:15 02/19/19 22:30 Temperature Temperature Source Sepsis Recent Fever Within 48 Hours Sepsis New/Unexplained Change in Mental Status Sepsis Action Taken by Nursing Pulse Rate 65 62 65 Pulse Rate [Finger] Pulse Rate from SpO2 Sensor 64 59 L 66 Pulse Rhythm Pulse Strength Respiratory Rate 19 17 20 Respiratory Effort / Characteristics Respiratory Depth Respiratory Pattern Blood Pressure 106/58 L 130/74 132/75 Blood Pressure [Right Arm] Blood Pressure Mean 74 92 94 Blood Pressure Mean [Right Arm] Blood Pressure Position Pulse Oximetry 92 90 97 Oxygen Delivery Method 02/19/19 23:20 Temperature Temperature Source Sepsis Recent Fever Within 48 Hours Sepsis New/Unexplained Change in Mental Status Sepsis Action Taken by Nursing Pulse Rate Pulse Rate [Finger] 63 Pulse Rate from SpO2 Sensor Pulse Rhythm Pulse Strength Respiratory Rate 18 Respiratory Effort / Characteristics Respiratory Depth Respiratory Pattern Blood Pressure Blood Pressure [Right Arm] 137/73 Blood Pressure Mean Blood Pressure Mean [Right Arm] 94 Blood Pressure Position Pulse Oximetry 93 Oxygen Delivery Method Room Air General: Chronically-ill appearing older female. She is sleepig, minimally arousable. Cleanches eyes and mouth shut when I tried to examine her HEENT: Normal cephalic atraumatic. Pupils are equal round and reactive to light. Extraocular movements are intact. Oropharynx is pink with moist mucous membranes. No swelling of the mouth lips or tongue. Neck: Supple with a midline trachea. No meningeal signs or stiffness, no JVD or bruits. No Stridor. Chest: Clear to auscultation bilaterally. No wheezes or rhonchi. No increased work of breathing. Heart: regular rate and rhythm. Abdomen: Soft nontender, nondistended without rebound guarding or rigidity. Extremities: No cyanosis clubbing or edema. No calf tenderness or asymmetry Spine/Back. Non tender to palpation. No CVA tenderness Skin: Good turgor without rashes. Neurologic exam: Cranial nerves two through 12 are intact. Motor and sensation are intact and symmetrical throughout. Course 1821: The patient was evaluated in room A4 and a complete history and physical were performed. 2057: She has an elevated troponin and mildly elevated lactic acid. Family concerned about giving her antibiotics and would like to wait on CT scan. I told them I was worried about infection. 2199: Her CT shows either an ileus or JIMMY. Family is very reluctant for an NG tube. They do not want surgery. 8: Discussed the patient's case with Dr. Kong, General Surgery. He recommends an NG tube if she is vomiting. 2325: Discussed the patient's case with Dr. Piña, [facility] Hospitalist. The patient will be evaluated for further management. Administered Medications Discontinued Medications Sodium Chloride (Nss 1000ml) 1,000 mls @ 999 mls/hr IV .[id number] ALAN Stop: 02/19/19 19:31 Last Admin: 02/19/19 20:29 Dose: 250 mls/hr Documented by: [id number] Ondansetron HCl (Zofran) 4 mg IV NOW STA Stop: 02/19/19 18:34 Last Admin: 02/19/19 23:50 Dose: Not Given Documented by: [id number] Medical Decision Making Differential Diagnosis Differential diagnoses considered include dehydration, dementia, cardiac disease, bowel obstruction, sepsis, pneumonia, as well as others were entertained. Medical Records Attestation: I reviewed the patient's medical records. Home Medications Current Medication List: was personally reviewed by me Laboratory Data Attestation: I reviewed the patient's lab results. Result diagrams: 02/19/19 19:52 02/19/19 19:52 Lab Results 02/19/19 02/19/19 02/19/19 Range/Units 19:52 19:52 19:52 WBC 12.36 H (4.8-10.8) K/uL RBC 4.78 (4.2-5.4) M/uL Hgb 14.8 (12.0-16.0) g/dL Hct 43.9 (37-47) % MCV 91.8 (80-100) fL MCH 31.0 (25-34) pg MCHC 33.7 (32-36) g/dL RDW Std Deviation 44.6 (36.4-46.3) fL RDW Coeff of Devorah 13.3 (11.5-14.5) % Plt Count 301 (130-400) K/uL MPV 10.0 (7.4-10.4) fL Immature Gran % (Auto) 0.3 % Neut % (Auto) 83.9 % Lymph % (Auto) 8.5 % White % (Auto) 7.3 % Eos % (Auto) 0.0 % Baso % (Auto) 0.0 % Immature Gran # (Auto) 0.04 H (0.00-0.02) K/uL Neut # (Auto) 10.37 H (1.4-6.5) K/uL Lymph # (Auto) 1.05 L (1.2-3.4) K/uL White # (Auto) 0.90 H (0.11-0.59) K/uL Eos # (Auto) 0.00 (0-0.5) K/uL Baso # (Auto) 0.00 (0-0.2) K/uL PT 10.8 (9.0-12.0) Seconds INR 1.1 (0.9-1.1) APTT 25.4 (21.0-31.0) Seconds PTT Ratio 0.9 Sodium 139 (136-145) mmol/L Potassium 3.3 L (3.5-5.1) mmol/L Chloride 102 (98-107) mmol/L Carbon Dioxide 30 (21-32) mmol/L Anion Gap 7.0 (3-11) BUN 16 (7-18) mg/dl Creatinine 1.02 (0.6-1.2) mg/dl Est Cr Clr Drug Dosing 33.6 ml/min Est GFR ( Amer) 59.3 Est GFR (Non-Af Amer) 51.2 BUN/Creatinine Ratio 15.7 (10-20) Glucose 153 H (70-99) mg/dl Lactate (0.4-2.0) mmol/L Calcium 9.7 (8.5-10.1) mg/dl Magnesium 2.2 (1.8-2.4) mg/dl Total Bilirubin 0.4 (0.2-1) mg/dl AST 14 L (15-37) U/L ALT 18 (12-78) U/L Alkaline Phosphatase 76 (45-117) U/L Troponin I < 0.015 (0-0.045) ng/ml Total Protein 7.4 (6.4-8.2) gm/dl Albumin 3.5 (3.4-5.0) gm/dl Globulin 3.9 (2.5-4.0) gm/dl Albumin/Globulin Ratio 0.9 (0.9-2) Urine Color Urine Appearance (Clear) Urine pH (4.5-7.5) Ur Specific [place] (1.000-1.030) Urine Protein (Negative) Urine Glucose (UA) (Negative) Urine Ketones (Negative) Urine Blood (Negative) Urine Nitrite (Negative) Urine Bilirubin (Negative) Urine Urobilinogen (Negative) Ur Leukocyte Esterase (Negative) Urine WBC (Auto) (0-5) /hpf Urine RBC (Auto) (0-4) /hpf U Hyaline Cast (Auto) (0-5) /lpf U Epithel Cells (Auto) (0-5) /lpf Urine Bacteria (Auto) (Negative) 02/19/19 02/19/19 Range/Units 19:52 22:24 WBC (4.8-10.8) K/uL RBC (4.2-5.4) M/uL Hgb (12.0-16.0) g/dL Hct (37-47) % MCV (80-100) fL MCH (25-34) pg MCHC (32-36) g/dL RDW Std Deviation (36.4-46.3) fL RDW Coeff of Devorah (11.5-14.5) % Plt Count (130-400) K/uL MPV (7.4-10.4) fL Immature Gran % (Auto) % Neut % (Auto) % Lymph % (Auto) % White % (Auto) % Eos % (Auto) % Baso % (Auto) % Immature Gran # (Auto) (0.00-0.02) K/uL Neut # (Auto) (1.4-6.5) K/uL Lymph # (Auto) (1.2-3.4) K/uL White # (Auto) (0.11-0.59) K/uL Eos # (Auto) (0-0.5) K/uL Baso # (Auto) (0-0.2) K/uL PT (9.0-12.0) Seconds INR (0.9-1.1) APTT (21.0-31.0) Seconds PTT Ratio Sodium (136-145) mmol/L Potassium (3.5-5.1) mmol/L Chloride (98-107) mmol/L Carbon Dioxide (21-32) mmol/L Anion Gap (3-11) BUN (7-18) mg/dl Creatinine (0.6-1.2) mg/dl Est Cr Clr Drug Dosing ml/min Est GFR ( Amer) Est GFR (Non-Af Amer) BUN/Creatinine Ratio (10-20) Glucose (70-99) mg/dl Lactate 2.6 H* (0.4-2.0) mmol/L Calcium (8.5-10.1) mg/dl Magnesium (1.8-2.4) mg/dl Total Bilirubin (0.2-1) mg/dl AST (15-37) U/L ALT (12-78) U/L Alkaline Phosphatase (45-117) U/L Troponin I (0-0.045) ng/ml Total Protein (6.4-8.2) gm/dl Albumin (3.4-5.0) gm/dl Globulin (2.5-4.0) gm/dl Albumin/Globulin Ratio (0.9-2) Urine Color Dark Yellow Urine Appearance Cloudy A (Clear) Urine pH 7.5 (4.5-7.5) Ur Specific [place] 1.021 (1.000-1.030) Urine Protein Negative (Negative) Urine Glucose (UA) Negative (Negative) Urine Ketones 1+ H (Negative) Urine Blood Negative (Negative) Urine Nitrite Negative (Negative) Urine Bilirubin Negative (Negative) Urine Urobilinogen Negative (Negative) Ur Leukocyte Esterase Negative (Negative) Urine WBC (Auto) 1-5 (0-5) /hpf Urine RBC (Auto) 0-4 (0-4) /hpf U Hyaline Cast (Auto) 1-5 (0-5) /lpf U Epithel Cells (Auto) 20-30 H (0-5) /lpf Urine Bacteria (Auto) Negative (Negative) Imaging Data Radiologist's Impression: Radiology results as stated below per my review and the radiologist's interpretation: XR chest 1V portable HISTORY: Sepsis COMPARISON: Chest CTA 11/03/2016. FINDINGS: There is again noted a large hiatus hernia. No pneumothorax. Suspect a trace right pleural effusion. Right basilar densities remain unchanged in favor atelectasis from the large hiatus hernia. The heart is normal in size. The stomach appears to be gas-filled and mildly distended within the hernia. IMPRESSION: Large hiatus hernia containing a distended gas-filled loop of bowel which may represent the stomach. Electronically signed by: Jorge Jalloh M.D. 02/19/2019 7:[address] chest wo con, CT abd pelvis wo con CT DOSE: 369.65 mGy.cm HISTORY: hiatal hernia , vomiting eval for obst TECHNIQUE: Multiaxial CT images of the chest, abdomen, pelvis were performed wi thout contrast. A dose lowering technique was utilized adhering to the principles of ALARA. COMPARISON: Chest CTA 11/03/2016. FINDINGS: Chest CT: No pneumothorax. The central airways are patent. Small cluster of groundglass nodular densities within the right upper lobe with the largest measuring 7 mm. These favor mild inflammatory/infectious change. Bilateral lower lobe densities likely represent compressive atelectasis from the large hiatus hernia. Trace left pleural effusion, unchanged. The heart is normal in size. There is mild mass effect along the posterior heart from the large hiatus hernia. Normal caliber thoracic aorta. Mildly distended and fluid-filled esophagus. No significant mediastinal or hilar lymphadenopathy. Markedly distended gas and fluid-filled stomach within the large hiatus hernia. No suspicious lytic or blastic osseous lesions within the visualized osseous struct ures of the chest. Abdomen/pelvis CT: No pneumoperitoneum. No pneumatosis. No suspicious lytic or b lastic osseous lesions. Markedly distended gas and fluid-filled stomach within the large hiatus hernia. The gastric antrum and proximal duodenum or also gas- filled and distended below the level of the diaphragm. The second portion of the duodenum is decompressed. Although, this does not clearly represent a transition point as there are multiple mildly distended gas-filled loops of large and small bowel seen throughout the abdomen.. However, the distended stomach is out of portion to the remaining small bowel and therefore the possibility of a gastric outlet obstruction secondary to the hiatus hernia still remains in the differential diagnosis. A few hypodense lesions within the liver likely representing cysts. The largest in the right hepatic lobe measures 3.6 cm. The gallbladder, pancreas, spleen, adrenal glands, left kidney are unremarkable. There is also a cyst within the upper pole the right kidney, unchanged. No retroperitoneal lymphadenopathy. The bladder is unremarkable. The uterus is surgically absent. Suboptimal evaluation for bowel pathology due to the lack of intravenous and oral contrast. However, there is no definite bowel wall thickening. Multiple colonic diverticula. Moderate well-formed stool within the distal colon and rectum. IMPRESSION: 1. Markedly distended gas and fluid-filled stomach within the large hiatus hernia. The gastric antrum and proximal duodenum or also gas-filled and distended below the level of the diaphragm. The second portion of the duodenum is decompressed. Although, this does not clearly represent a transition point as there are multiple mildly distended gas-filled loops of large and small bowel seen throughout the abdomen. These findings raise the possibility of an ileus. However, the distended stomach is out of portion to the remaining small bowel and therefore the possibility of a gastric outlet obstruction secondary to the h iatus hernia still remains in the differential diagnosis. Surgical consultation recommended. 2. Small cluster of groundglass nodular densities within the right upper lobe with the largest measuring 7 mm. These favor mild inflammatory/infectious change. 3. Trace left pleural effusion. 4. Mild mass effect along the posterior heart from the large hiatus hernia. 5. Additional findings as described above. Electronically signed by: Jorge Jalloh M.D. 02/19/2019 10:[address] chest wo con, CT abd pelvis wo con CT DOSE: 369.65 mGy.cm HISTORY: hiatal hernia , vomiting eval for obst TECHNIQUE: Multiaxial CT images of the chest, abdomen, pelvis were performed without contrast. A dose lowering technique was utilized adhering to the principles of ALARA. COMPARISON: Chest CTA 11/03/2016. FINDINGS: Chest CT: No pneumothorax. The central airways are patent. Small cluster of groundglass nodular densities within the right upper lobe with the largest measuring 7 mm. These favor mild inflammatory/infectious change. Bilateral lower lobe densities likely represent compressive atelectasis from the large hiatus hernia. Trace left pleural effusion, unchanged. The heart is normal in size. There is mild mass effect along the posterior heart from the large hiatus hernia. Normal caliber thoracic aorta. Mildly distended and fluid-filled esophagus. No significant mediastinal or hilar lymphadenopathy. Markedly distended gas and fluid-filled stomach within the large hiatus hernia. No suspicious lytic or blastic osseous lesions within the visualized osseous structures of the chest. Abdomen/pelvis CT: No pneumoperitoneum. No pneumatosis. No suspicious lytic or blastic osseous lesions. Markedly distended gas and fluid-filled stomach within the large hiatus hernia. The gastric antrum and proximal duodenum or also gas- filled and distended below the level of the diaphragm. The second portion of the duodenum is decompressed. Although, this does not clearly represent a transition point as there are multiple mildly distended gas-filled loops of large and small bowel seen throughout the abdomen.. However, the distended stomach is out of portion to the remaining small bowel and therefore the possibility of a gastric outlet obstruction secondary to the hiatus hernia still remains in the differential diagnosis. A few hypodense lesions within the liver likely representing cysts. The largest in the right hepatic lobe measures 3.6 cm. The gallbladder, pancreas, spleen, adrenal glands, left kidney are unremarkable. There is also a cyst within the upper pole the right kidney, unchanged. No retroperitoneal lymphadenopathy. The bladder is unremarkable. The uterus is surgically absent. Suboptimal evaluation for bowel pathology due to the lack of intravenous and oral contrast. However, there is no definite bowel wall thickening. Multiple colonic diverticula. Moderate well-formed stool within the distal colon and rectum. IMPRESSION: 1. Markedly distended gas and fluid-filled stomach within the large hiatus hernia. The gastric antrum and proximal duodenum or also gas-filled and distended below the level of the diaphragm. The second portion of the duodenum is decompressed. Although, this does not clearly represent a transition point as there are multiple mildly distended gas-filled loops of large and small bowel seen throughout the abdomen. These findings raise the possibility of an ileus. However, the distended stomach is out of portion to the remaining small bowel and therefore the possibility of a gastric outlet obstruction secondary to the hiatus hernia still remains in the differential diagnosis. Surgical consultation recommended. 2. Small cluster of groundglass nodular densities within the right upper lobe with the largest measuring 7 mm. These favor mild inflammatory/infectious change. 3. Trace left pleural effusion. 4. Mild mass effect along the posterior heart from the large hiatus hernia. 5. Additional findings as described above. Electronically signed by: Jorge Jalloh M.D. 02/19/2019 10:03 PM ECG Data Attestation: I personally reviewed and interpreted this ECG as follows: Indication: vomiting Rate (beats per minute): 67 Rhythm: normal sinus Findings: no acute ischemic change Comparison ECG Date: from (11/02/16) Change: the following changes noted (rate has decreased) Blood Pressure Blood Pressure Findings: Elevated blood pressure Blood Pressure Disposition: further management by hospitalist MDM Narrative This patient comes in as described above. She was placed in room A4. She is here for treatment and evaluation of persistent vomiting. She has severe dementia and requires 24-hour full care. She is verbal at times but is mostly nonverbal. Her daughter says they cannot keep anything down. She has had no fall or trauma. No fever her daughter does not feel that she has had any significant pain anywhere that she can tell. IV access was established and blood work was obtained. Her white count is elevated. Her lactic acid also mildly elevated however they had a difficult time drawn in some that could be erroneous. I did a chest x-ray and she has a large hiatal hernia. I did a chest CT and abdominal CT and she has a large hiatal hernia which may be causing obstruction of the gastric outlet. She may also just have an ileus. She has no significant electrolyte or metabolic abnormalities. I Talked to family at length. She is definitely DNR. They do not feel they want surgery either. I discussed antibiotics at this point a do not feel she needs antibiotics I explained I was concerned she could be septic with elevated lactate they prefer to hold. Additionally with the NG tube which was suggested as well today, I suggested that she may need for decompression for her bowel obstruction but they are concerned with this. She has not vomited for 5 hours and I think is reasonable to hold this. I do think she needs to be admitted/observe for IV hydration and further treatment and evaluation. I have discussed this with Dr. Kong the surgeon as well as Dr. Santiago, the admitting hospitalist Impression & Plan Bowel obstruction, Dementia, Dehydration, Vomiting, Hernia, hiatal Discharge Plan Visit Data Chief Complaint: Vomiting Stated Complaint: VOMITING, DEHYDRATION ED Provider: Jaylon Angel Discharge Problem: Bowel obstruction, Dementia, Dehydration, Vomiting, Hernia, hiatal Patient Disposition: Being Evaluated by Hospitalist Forms Stand Alone Forms: My [facility] Prescriptions Prescriptions: No Action progesterone micronized 4 % Gel 4 % VAGINAL BID RF: 0 estradiol 0.01 % (0.1 mg/gram) Cream 1 g VAGINAL DAILY RF: 0 Referrals Referrals: Richelle Corey [Primary Care Provider] - The scribe's documentation has been prepared under my direction and personally reviewed by me in its entirety. I confirm that the note above accurately reflects all work, treatment, procedures, and medical decision making performed by me.
[2019-02-20] MEDS ORDERED: SODIUM CHLORIDE 0.9% 1000ML 1,000 ML IV SCH (01:20)
[2019-02-20] MEDS ORDERED: ACETAMINOPHEN 1,000 MG/100 ML VIAL IV PRN (01:20)
[2019-02-20] MEDS ORDERED: ONDANSETRON INJ 2 MG/ML 2 ML VIAL IV PRN (01:20)
--- NOTE | 2019-02-20 02:18 | History & Physical Report ---
Date of Service February 20, 2019 Assessment & Plan (1) Severe dementia: 83-year-old female with a history significant for hiatal hernia and advanced dementia presents with her family who state that she has been vomiting and unable to keep food down since yesterday evening. Hiatal hernia, questionable ileus versus gastric outlet obstruction General surgery consult, appreciate recommendations Keep n.p.o., continue maintenance fluids Stomach is distended into the thoracic cavity, no signs of respiratory distress CT also noted 7 mm groundglass nodularity in the lung bases and a small left pleural effusion Dehydration Lactate 2.6 Continue fluids, received 1 L in the ED, continue 125 cc/h, recheck lactate in the morning Patient was afebrile, white count was 12.36, likely secondary to retching, but continue to follow for signs of sepsis Severe dementia Patient is DNR/DNI I get the sense the family does not want to pursue aggressive treatment Continue family discussions with daycare provider regarding home needs CODE STATUSDNR/DNI Dietn.p.o. DVT prophylaxisSCDs (2) Dehydration: (3) Vomiting: (4) Hiatal hernia: (5) History of hysterectomy: History of Present Illness Primary Care Provider: Richelle Corey 83-year-old female with a history significant for hiatal hernia and advanced dementia presents with her family who state that she has been vomiting and unable to keep food down since yesterday evening. They have not been able to get a temperature, but states that the patient feels warm. The patient is nonverbal and nonambulatory at baseline. They state that she has a decent appetite at baseline and is normally able to keep food down. They noticed that she was moaning in pain after eating meals and that she had episodes of vomiting after meals, starting last night after dinner. No known sick contacts. Her daughter is her primary branch lending officer. She lives at home with her. Review of systems Unable to obtain due to patient's mental status Allergies Allergy/AdvReac Type Severity Reaction Status Date / Time blue dye Allergy Unknown Confusion Verified 02/20/19 19:00 donepezil Allergy Unknown rash Verified 02/19/19 23:19 gluten Allergy Unknown Gastrointestinal Verified 02/20/19 18:58 Upset moxifloxacin Allergy Unknown unknown Verified 02/19/19 23:19 red dye Allergy Unknown Confusion Verified 02/20/19 19:00 yellow dye Allergy Unknown Confusion Verified 02/20/19 19:00 Ceepryn Chloride Allergy Unknown unknown Uncoded 02/19/19 23:19 Home Medications Home Medications Medication Instructions Recorded Confirmed Type estradiol 1 g VAGINAL DAILY 02/19/19 02/19/19 History progesterone micronized 4 % VAGINAL BID 02/19/19 02/19/19 History Past Med/Surg History Medical History Hiatal hernia History of hysterectomy Social History Preferred Language: Urdu Communication Ability: Effective Wheel And Axle Inspector Required: No Beliefs That Will Affect Care: Syn[employer] Current Living Situation: Family Other Information That Helps Us Care for You: No Feels Safe at Home: Yes Smoking Status: Never smoker Do You Dip or Chew Tobacco: No ; Second Hand Exposure: No ; Tobacco Cessation Education Requested by Patient: No Hx Alcohol Use: No Hx Substance Use: No Review of Systems Review of Systems: Unobtainable due to cognitive status Physical Exam Constitutional: WD/WN, vitals as above Eyes: PERRL, conjunctivae normal, anicteric sclerae ENMT: external ear and nose normal, oropharynx normal Neck: trachea midline, no thyromegaly Respiratory: normal respiratory effort, lungs clear to auscultation Auscultation: + diminished lung sounds (bilateral bases) Cardiovascular: RRR, no murmur, no edema Musculoskeletal: no cyanosis or clubbing, extremities motor strength 5/5 Skin: no rashes, warm and dry Neurologic: + confused; + not awake Psychiatric: Orientation: + not alert and + not oriented x 3 Results & Data Vital Signs (Past 12 Hours) Vital Signs Temp Pulse Pulse Resp BP BP Pulse Ox 02/20/19 01:29 91 02/20/19 01:20 37.9 C H 68 16 136/89 86 L 02/20/19 00:59 70 18 121/67 98 02/19/19 23:20 63 18 137/73 93 02/19/19 22:30 65 20 132/75 97 02/19/19 22:15 62 17 130/74 90 02/19/19 22:01 65 19 106/58 L 92 02/19/19 22:00 63 18 02/19/19 21:45 67 17 10/29/19 21:37 67 19 02/19/19 21:15 66 20 122/62 92 02/19/19 21:00 67 16 130/73 91 02/19/19 20:45 68 18 119/72 91 02/19/19 20:30 66 22 117/62 90 02/19/19 20:27 68 17 112/79 90 02/19/19 20:15 70 19 90 02/19/19 19:45 71 19 143/73 H 89 L 02/19/19 19:30 70 21 130/66 91 02/19/19 19:15 64 15 127/74 91 02/19/19 19:02 67 15 142/74 H 94 02/19/19 18:59 95 02/19/19 18:03 36.8 C 111 H 20 114/65 96 Code Status & VTE Plan VTE Prophylaxis Plan VTE Prophylaxis will be ordered: Yes Supervising Physician Co-Signing Physician Notes Attending addendum: I have physically seen this patient, have supervised the medical residents activities, and agree with the H&P unless as otherwise noted. Assessment and Plan: Presumptive gastric outlet obstruction secondary to large hiatal hernia/ileus- NPO IV fluids. Famotidine 20 mg IV every 12 hours. Zofran 4 mg IV every 6 hours as needed. Consult general surgery/thoracic surgery. At risk for aspiration. No NG tube at this time. Remainder of orders and notations as noted. PG Care Time/CCT Total # of Minutes Spent Total Time Spent with Patient: Total time spent is greater than 50% in coordination of care (as documented) at patient's floor/unit and/or counseling patient: Resident Activity Tracking Resident Involvement: Resident Care Provided Care Provided: Adult Hospital Medicine (1) Vomiting Nausea presence: unspecified Vomiting Intractability: unspecified Vomiting type: unspecified Qualified Code(s): R11.10 - Vomiting, unspecified
[2019-02-20] MEDS: D5NSS + 20MEQ KCL 20 MEQ/1,000 ML BAG IV SCH ×3 (02:54→18:24)
[2019-02-20 07:04] LABS: Basophils # (auto) 0.02 K/uL (0-0.2); Basophils % (auto) 0.2 %; Eosinophils # (auto) 0.01 K/uL (0-0.5); Eosinophils % (auto) 0.1 %; Hematocrit (blood only) 35.5 % (37-47); Hemoglobin 11.7 g/dL (12.0-16.0); Immature Granulocytes # (auto) 0.01 K/uL (0.00-0.02); Immature Granulocytes % (auto) 0.1 %; Lymphocytes # (auto) 2.28 K/uL (1.2-3.4); Lymphocytes % (auto) 18.8 %; Mean Corpuscular Hemoglobin 30.2 pg (25-34); Mean Corpuscular Volume 91.7 fL (80-100); Mean Platelet Volume 9.8 fL (7.4-10.4); Monocytes # (auto) 1.56 K/uL (0.11-0.59); Monocytes % (auto) 12.9 %; Neutrophils # (auto) 8.25 K/uL (1.4-6.5); Neutrophils % (auto) 67.9 %; Platelet Count 254 K/uL (130-400); RDW Coefficient of Variation 13.5 % (11.5-14.5); RDW Standard Deviation 45.4 fL (36.4-46.3); Red Blood Count 3.87 M/uL (4.2-5.4); White Blood Count 12.13 K/uL (4.8-10.8)
[2019-02-20 07:13] LABS: Albumin Level 2.5 gm/dl (3.4-5.0); BUN Creatinine Ratio 20.5 (10-20); Calcium 8.4 mg/dl (8.5-10.1); Est GFR (African American) 82.1; Est GFR (Non-African American) 70.8; Potassium 3.2 mmol/L (3.5-5.1)
--- NOTE | 2019-02-20 07:35 | Surgery Consultation ---
Date of Consultation February 20, 2019 Assessment & Plan (1) Hernia, hiatal: N/V has resolved. If symptoms return we could reconsider NGT. Dr. Zavala discussed usual evaluation would include NG decompression, followed by EGD and likely surgery to repair the hernia. Given her overall situation, her daughter prefers a less aggressive approach. We will continue to see how she does throughout the day. History of Present Illness Attending Physician: Rancho Piña MD History of Present Illness 83 y/o female with advanced dementia lives with her daughter and brought to the ED last night for 24 hours N/V. Admitted for large hiatal hernia. Has occasional postprandial N/V that usually resolves within a few hours. Vomiting has resolved, she was sleeping this morning while we discussed the situation with her daughter. She was not c/o of any pain and has not had pain with past episodes. Allergies Allergy/AdvReac Type Severity Reaction Status Date / Time donepezil Allergy Unknown rash Verified 02/19/19 23:19 moxifloxacin Allergy Unknown unknown Verified 02/19/19 23:19 Ceepryn Chloride Allergy Unknown unknown Uncoded 02/19/19 23:19 Home Medications Home Medications Medication Instructions Recorded Confirmed Type estradiol 1 g VAGINAL DAILY 02/19/19 02/19/19 History progesterone micronized 4 % VAGINAL BID 02/19/19 02/19/19 History Patient History Medical History Hiatal hernia History of hysterectomy Social History Preferred Language: Croatian Communication Ability: Impaired Sponsorship Coordinator Required: No Beliefs That Will Affect Care: [employer] Current Living Situation: Family Other Information That Helps Us Care for You: No Feels Safe at Home: Yes Smoking Status: Never smoker Do You Dip or Chew Tobacco: No ; Second Hand Exposure: No ; Tobacco Cessation Education Requested by Patient: No Hx Alcohol Use: No Hx Substance Use: No Physical Exam Constitutional: no acute distress (sleeping) Results & Data Vital Signs (Past 12 Hours) Vital Signs Temp Pulse Pulse Resp BP BP Pulse Ox 02/20/19 03:02 95 02/20/19 01:29 91 02/20/19 01:20 37.9 C H 68 16 136/89 86 L 02/20/19 00:59 70 18 121/67 98 02/19/19 23:20 63 18 137/73 93 02/19/19 22:30 65 20 132/75 97 02/19/19 22:15 62 17 130/74 90 02/19/19 22:01 65 19 106/58 L 92 02/19/19 22:00 63 18 02/19/19 21:45 67 17 02/19/19 21:37 67 19 02/19/19 21:15 66 20 122/62 92 02/19/19 21:00 67 16 130/73 91 02/19/19 20:45 68 18 119/72 91 02/19/19 20:30 66 22 117/62 90 02/19/19 20:27 68 17 112/79 90 02/19/19 20:15 70 19 90 02/19/19 19:45 71 19 143/73 H 89 L 02/19/19 19:30 70 21 130/66 91 PG Care Time/CCT Total # of Minutes Spent Total Time Spent with Patient: Total time spent is greater than 50% in c oordination of care (as documented) at patient's floor/unit and/or counseling patient:
[2019-02-20 07:44] LABS: Albumin Globulin Ratio 0.8 (0.9-2); Bilirubin,Total 0.5 mg/dl (0.2-1); Globulin 3.1 gm/dl (2.5-4.0); Total Protein 5.6 gm/dl (6.4-8.2)
[2019-02-20] MEDS ORDERED: LORazepam 0.25 MG/0.5 ML VIAL IV PRN (13:30)
--- NOTE | 2019-02-20 16:52 | Hospitalist Progress Note ---
Date of Service February 20, 2019 Assessment & Plan (1) Hiatal hernia: - CT with markedly distended gas and fluid filled stomach within the large hiatus hernia with gastric antrum and proximal duodenum below level of diaphragm which are also gas-filled -- Second portion of duodenum is decompressed - does not clearly represent a transition point as there is mildly distended gas filled loops throughout abdomen but may need considered -- Small cluster of ground glass -- Concern for ileus vs gastric outlet obstruction due to hernia - NPO with D5 + K at 125 mL/hr - monitor I&Os - will watch for urinary retention and straight cath as necessary - largely incontinent at baseline - Gen Surg following - possible NGT if vomiting would continue; family looking largely to least invasive measures given her mother's baseline condition (2) Dehydration: - Lactic was 2.6 on admission but is now normal after hydration supporting more of a dehydration picture - Treatment as above; will monitor given now low normal BP and mild leukocytosis - will monitor for development of aspiration pneumonia Present on Admission?: Yes (3) Hypotension: - Had systolics of 88 early this AM - was normal throughout day and now low normal with systolics in mid to high 90s - Discussed with daughter as she states her BP is normally on the lower side; patient cannot contribute to ROS due to advanced dementia but is alert and will track you with her eyes and will reach out to shake hands, etc. - Will monitor for worsening leukocytosis, fever, further blood pressure drops - concern could be for developing aspiration pneumonia given CT and multiple episodes of vomiting - would initiate Zosyn if further concerns for infection/sepsis and can further bolus fluids if necessary Present on Admission?: No (4) Severe dementia: - Baseline is largely nonverbal - family reports she is looking better th en she did a day ago but is at baseline cognitively Present on Admission?: Yes (5) DVT prophylaxis: Disposition: Bowel rest and allow for clinical improvement; plan to return home on D/C with family support Subjective Patient resting upon entering room. Did wake up intermittently stating she was "falling behind". Daughter states she dreams often of her kids and students in the past. She appears comfortable but is largely nonverbal and has significant dementia. Updated daughter at bedside on current plan Daughter states she has noticed her mother has been passing gas. Normally has regular BMs at home. Re-evaluated patient has multiple BP low normal this evening. Patient is awake and family states she looks better then she did when she came in. They state she tends to run low normal with blood pressures. Patient is largely nonverbal and cannot participate in ROS due to advanced dementia. She intermittently desats at home with PRN O2 and currently is off O2 with appropriate saturations. No coughing or respiratory compromise. CT suggests possible ground glass opacity in RUL which is possible this is an aspiration component. Will monitor for need for Abx Review of Systems Review of Systems: Unobtainable due to cognitive status Physical Exam Constitutional: + frail appearing; no acute distress Eyes: + anicteric sclerae Neck: trachea midline Respiratory: normal respiratory effort Auscultation: lungs clear to auscultation bilaterally Cardiovascular: Rate/Rhythm: regular rate and regular rhythm Heart Sounds: no murmur Gastrointestinal (Abdomen): Inspection/Auscultation: normal bowel sounds Percussion/Palpation: abdomen soft; abdomen nontender Musculoskeletal: Head/Neck/Chest: normocephalic and head atraumatic Skin: no rashes, warm and dry Psychiatric: Orientation: alert (quickly falls back to sleep ) Results & Data Vital Signs (Past 12 Hours) Vital Signs Temp Pulse Resp BP Pulse Ox 02/20/19 12:33 100/60 02/20/19 08:08 94 02/20/19 07:40 37.0 C 66 16 88/51 L 92 02/20/19 03:02 95 02/20/19 01:29 91 02/20/19 01:20 37.9 C H 68 16 136/89 86 L 02/20/19 00:59 70 18 121/67 98 PG Care Time/CCT Total # of Minutes Spent Total Time Spent with Patient: Total time spent is greater than 50% in coordination of care (as documented) at patient's floor/unit and/or counseling patient:
[2019-02-21] MEDS: D5NSS + 20MEQ KCL 20 MEQ/1,000 ML BAG IV SCH ×3 (01:53→17:13)
[2019-02-21 08:57] LABS: Creatinine Clr Calc Pharmacy 47.6 ml/min; Est GFR (African American) 90.4
--- NOTE | 2019-02-21 10:18 | Surgery Progress Note ---
Date of Service February 21, 2019 Assessment & Plan (1) Hiatal hernia: improved seen with Dr. Zavala can resume diet per medicine will sign off Subjective no further N/V per daughter Results & Data Vital Signs (Past 12 Hours) Vital Signs Temp Pulse Resp BP BP Pulse Ox 02/21/19 07:52 36.9 C 78 18 89/57 L 99 02/20/19 23:42 36.3 C L 52 L 17 131/65 90 PG Care Time/CCT Total # of Minutes Spent Total Time Spent with Patient: Total time spent is greater than 50% in coordination of care (as documented) at patient's floor/unit and/or counseling patient:
[2019-02-21 10:41] LABS: Hematocrit (blood only) 36.6 % (37-47); Hemoglobin 11.9 g/dL (12.0-16.0); Mean Corpuscular Hemoglobin 30.1 pg (25-34); Mean Corpuscular Hgb Conc 32.5 g/dL (32-36); Mean Corpuscular Volume 92.4 fL (80-100); Mean Platelet Volume 9.9 fL (7.4-10.4); Platelet Count 226 K/uL (130-400); RDW Coefficient of Variation 13.4 % (11.5-14.5); RDW Standard Deviation 44.7 fL (36.4-46.3); Red Blood Count 3.96 M/uL (4.2-5.4); White Blood Count 8.82 K/uL (4.8-10.8)
--- NOTE | 2019-02-21 12:00 | Hospitalist Progress Note ---
Date of Service February 21, 2019 Assessment & Plan (1) Hiatal hernia: - CT with markedly distended gas and fluid filled stomach within the large hiatus hernia with gastric antrum and proximal duodenum below level of diaphragm which are also gas-filled -- Second portion of duodenum is decompressed - does not clearly represent a transition point as there is mildly distended gas filled loops throughout abdomen but may need considered -- Small cluster of ground glass opacity - possible inflammatory changes vs infectious -- Concern for ileus vs gastric outlet obstruction due to hernia - Clear liquid diet - discussed with daughter at bedside to advance slowly - will attempt some ice chips this afternoon - daughter reports she makes some juice/ice at home and it is okay to bring in for patient - Will continue additional fluids at this time - IVF at 125 mL/hr - Gen Surg followed - appreciate input (2) Dehydration: - Lactic was 2.6 on admission but is now normal after hydration supporting more of a dehydration picture - Treatment as above; will monitor given now low normal BP - will monitor for development of aspiration pneumonia given CT findings -- Still with soft BP this AM however is awake and interactive for her baseline - no respiratory compromise - leukocytosis is resolved and afebrile - will monitor (3) Severe dementia: - Baseline is largely nonverbal - family reports she is looking better then she did a day ago but is at baseline cognitively (4) DVT prophylaxis: - SCDs Disposition: Await diet advancement and clinical improvement; Possibly 3-4 day additional stay; plan for return home at discharge with family support Subjective Patient is awake and appears comfortable. So remains nonverbal but will sometimes nod her head to yes/no questions. She did make a grimace and has some flatus and seemed to stop grimacing. When palpating the abdomen she did make a grimace as well. However daughter states she normally doesn't like a lot of touch as it can be irritating to her. Abdomen is soft and has good bowel sounds. Stool is noted on CT clear into rectum and likely should have a BM soon. Will trial ice chips/clears and advance slowly as tolerated Review of Systems Review of Systems: Unobtainable due to cognitive status Physical Exam Constitutional: + frail appearing; no acute distress Eyes: + anicteric sclerae Neck: trachea midline Respiratory: normal respiratory effort Auscultation: lungs clear to auscultation bilaterally Cardiovascular: Rate/Rhythm: regular rate and regular rhythm Heart Sounds: no murmur Extremities: normal capillary refill; no edema good perfusion/temperature/color of extremities Gastrointestinal (Abdomen): Inspection/Auscultation: normal bowel sounds Percussion/Palpation: + abdomen tender (mild grimacing with 1-2 inch depth palpation ) and abdomen soft Musculoskeletal: Head/Neck/Chest: normocephalic and head atraumatic Skin: no rashes, warm and dry Psychiatric: Orientation: alert (quickly falls back to sleep ) Results & Data Vital Signs (Past 12 Hours) Vital Signs Temp Pulse Resp BP Pulse Ox 02/21/19 07:52 36.9 C 78 18 89/57 L 99 PG Care Time/CCT Total # of Minutes Spent Total Time Spent with Patient: Total time spent is greater than 50% in coordination of care (as documented) at patient's floor/unit and/or counseling patient:
[2019-02-22] MEDS: D5NSS + 20MEQ KCL 20 MEQ/1,000 ML BAG IV SCH ×3 (01:24→19:31)
--- NOTE | 2019-02-22 13:13 | XRay Report ---
XR KUB/Abdomen 1 view CLINICAL HISTORY: Abdominal pain and constipation LARGE HIATAL HERNIA COMPARISON STUDY: CT scan dated 02/19/2019 FINDINGS: The patient's known large hiatal hernia is not included on the 3 provided views. There is g as within nondilated large and small bowel loops. There are no transition zones indicate bowel obstru ction. There are nonspecific pelvic basin calcifications statistically representing phleboliths. IMPRESSION: No conventional radiographic evidence of bowel obstruction. Electronically signed by: Daniel Ortez M.D. 02/22/2019 1:11 PM
--- NOTE | 2019-02-22 17:29 | Hospitalist Progress Note ---
Date of Service February 22, 2019 Assessment & Plan (1) Hiatal hernia: - CT with markedly distended gas and fluid filled stomach within the large hiatus hernia with gastric antrum and proximal duodenum below level of diaphragm which are also gas-filled -- Second portion of duodenum is decompressed - does not clearly represent a transition point as there is mildly distended gas filled loops throughout abdomen but may need considered -- Small cluster of ground glass opacity - possible inflammatory changes vs infectious -- Concern for ileus vs gastric outlet obstruction due to hernia - KUB on 02/22 shows no obvious transition point and no bowel obstruction; still with prevalent gas and possibly some more stool closer to rectum - anticipate further gas relief with further bowel movements - Will allow full liquid diet - will attempt slowly - discussed food options with daughter who likes to bring items from home with is okay - Will continue additional fluids at this time - IVF at 125 mL/hr and likely can reduce rate further down tomorrow - Gen Surg followed - signed off at this time (2) Dehydration: - Lactic was 2.6 on admission but is now normal after hydration supporting more of a dehydration picture - Treatment as above; BP stable- will monitor for development of aspiration pneumonia given CT findings however is not favoring an infectious etiology at this time (3) Severe dementia: - Baseline is largely nonverbal - seems to become more interactive with each visit (4) DVT prophylaxis: - SCDs Disposition: Await diet advancement and clinical improvement; plan for return home at discharge with family support Subjective Patient continues to look improved each day and more interactive. Did have a bowel movement yesterday and does not grimace when palpating the abdomen. KUB reveals continued gas however no signs of transition point or obstruction. Tolerating liquids and will attempt more of a full liquid diet today and monitor. No further vomiting up to this point. Did ambulate today and sit in the chair. Discussed with family at bedside today. Review of Systems Review of Systems: Unobtainable due to cognitive status Physical Exam Constitutional: + frail appearing; no acute distress Eyes: + anicteric sclerae Neck: trachea midline Respiratory: normal respiratory effort Auscultation: lungs clear to auscultation bilaterally Cardiovascular: Rate/Rhythm: regular rate and regular rhythm Heart Sounds: no murmur Extremities: normal capillary refill; no edema Gastrointestinal (Abdomen): Inspection/Auscultation: normal bowel sounds Percussion/Palpation: abdomen soft; abdomen nontender Musculoskeletal: Head/Neck/Chest: normocephalic and head atraumatic Skin: no rashes, warm and dry Psychiatric: Orientation: alert Eye Contact: good eye contact has been largely non-verbal towards unfamiliar individuals however becoming more interactive with reaching out to touch hands/face; interactive with family with more smiling and talking with them Results & Data Vital Signs (Past 12 Hours) Vital Signs Temp Pulse Resp BP Pulse Ox 02/22/19 15:31 36.4 C L 62 16 101/63 95 02/22/19 07:28 36.7 C 51 L 16 119/68 92 PG Care Time/CCT Total # of Minutes Spent Total Time Spent with Patient: Total time spent is greater than 50% in coordination of care (as documented) at patient's floor/unit and/or counseling patient:
[2019-02-23] MEDS: D5NSS + 20MEQ KCL 20 MEQ/1,000 ML BAG IV SCH ×3 (03:40→21:49)
[2019-02-23 08:41] LABS: Hematocrit (blood only) 41.9 % (37-47); Hemoglobin 14.4 g/dL (12.0-16.0); Mean Corpuscular Hgb Conc 34.4 g/dL (32-36); Mean Corpuscular Volume 90.1 fL (80-100); Mean Platelet Volume 10.1 fL (7.4-10.4); Platelet Count 253 K/uL (130-400); RDW Coefficient of Variation 12.7 % (11.5-14.5); RDW Standard Deviation 41.4 fL (36.4-46.3); Red Blood Count 4.65 M/uL (4.2-5.4); White Blood Count 7.59 K/uL (4.8-10.8)
[2019-02-23 09:09] LABS: BUN Creatinine Ratio 5.2 (10-20); Calcium 8.4 mg/dl (8.5-10.1); Creatinine Clr Calc Pharmacy 52.8 ml/min; Est GFR (African American) 95.8; Est GFR (Non-African American) 82.7; Potassium 3.5 mmol/L (3.5-5.1)
--- NOTE | 2019-02-23 12:56 | Hospitalist Progress Note ---
Date of Service February 23, 2019 Assessment & Plan (1) Hiatal hernia: - CT with markedly distended gas and fluid filled stomach within the large hiatus hernia with gastric antrum and proximal duodenum below level of diaphragm which are also gas-filled -- Second portion of duodenum is decompressed - does not clearly represent a transition point as there is mildly distended gas filled loops throughout abdomen but may need considered -- Small cluster of ground glass opacity - possible inflammatory changes vs infectious -- Concern for ileus vs gastric outlet obstruction due to hernia - KUB on 02/22 shows no obvious transition point and no bowel obstruction - Continues to move bowels and tolerating diet advancement - will advance to a regular diet and monitor - Reduce fluids to 80 mL/hr - If continues diet tolerance through the day - planning on D/C tomorrow to home - Gen Surg followed - signed off at this time (2) Dehydration: - Lactic was 2.6 on admission but is now normal after hydration supporting more of a dehydration picture - Treatment as above; BP stable- will monitor for development of aspiration pneumonia given CT findings however is not favoring an infectious etiology at this time - remains afebrile, no leukocytosis, and no respiratory compromise (3) Severe dementia: - Baseline is largely nonverbal but is smiling more and will say short sentences - family reporting her mood/interaction as baseline (4) DVT prophylaxis: - SCDs Disposition: Advancing to regular diet today; if tolerance without vomiting likely discharge tomorrow Subjective Pt is looking wonderful today. She is sitting in chair, smiling, and intermittently talking. She has tolerated advancement of her diet at this time and will therefore move to a regular diet and assess for tolerance. She moved her bowels again last evening. Good bowel sounds and no grimacing or reporting pain when palpating the abdomen. Labs are unremarkable. Review of Systems Review of Systems: Unobtainable due to cognitive status Physical Exam Constitutional: well nourished; no acute distress and not ill appearing Eyes: + anicteric sclerae ENMT: No evidence of erythema/white patches on tongue; mucous membranes moist Neck: trachea midline Respiratory: normal respiratory effort Auscultation: lungs clear to auscultation bilaterally Cardiovascular: Rate/Rhythm: regular rate and regular rhythm Heart Sounds: no murmur Extremities: no edema Gastrointestinal (Abdomen): Inspection/Auscultation: normal bowel sounds Percussion/Palpation: abdomen soft; abdomen nontender Musculoskeletal: Head/Neck/Chest: normocephalic and head atraumatic Skin: no rashes, warm and dry Neurologic: moves all extremities Psychiatric: Orientation: alert Eye Contact: good eye contact smiling a lot today and intermittently speaking short sentences Results & Data Vital Signs (Past 12 Hours) Vital Signs Temp Pulse Resp BP Pulse Ox 02/23/19 06:30 36.4 C L 61 16 147/66 H 95 PG Care Time/CCT Total # of Minutes Spent Total Time Spent with Patient: Total time spent is greater than 50% in coordination of care (as documented) at patient's floor/unit and/or counseling patient:
--- NOTE | 2019-02-24 14:15 | Discharge Summary ---
Date of Service February 24, 2019 Admission HPI Per Admitting Provider 83-year-old female with a history significant for hiatal hernia and advanced dementia presents with her family who state that she has been vomiting and unable to keep food down since yesterday evening. They have not been able to get a temperature, but states that the patient feels warm. The patient is nonverbal and nonambulatory at baseline. They state that she has a decent appetite at baseline and is normally able to keep food down. They noticed that she was moaning in pain after eating meals and that she had episodes of vomiting after meals, starting last night after dinner. No known sick contacts. Her sd mai is her primary technical agronomist. She lives at home with her. Review of systems Unable to obtain due to patient's mental status Principal Diagnosis Gastric Outlet Obstruction Discharge Exam Constitutional well nourished; no acute distress and not ill appearing Eyes + anicteric sclerae Neck trachea midline Respiratory normal respiratory effort Auscultation: lungs clear to auscultation bilaterally Cardiovascular Rate/Rhythm: regular rate and regular rhythm Heart Sounds: no murmur Extremities: no edema Gastrointestinal (Abdomen) Inspection/Auscultation: normal bowel sounds Percussion/Palpation: abdomen soft; abdomen nontender Musculoskeletal Head/Neck/Chest: normocephalic and head atraumatic Skin no rashes, warm and dry Neurologic moves all extremities Psychiatric Orientation: alert Eye Contact: good eye contact Discharge Data Allergies Allergy/AdvReac Type Severity Reaction Status Date / Time blue dye Allergy Unknown Confusion Verified 02/20/19 19:00 donepezil Allergy Unknown rash Verified 02/19/19 23:19 gluten Allergy Unknown Gastrointestinal Verified 02/20/19 18:58 Upset moxifloxacin Allergy Unknown unknown Verified 02/19/19 23:19 red dye Allergy Unknown Confusion Verified 02/20/19 19:00 yellow dye Allergy Unknown Confusion Verified 02/20/19 19:00 Ceepryn Chloride Allergy Unknown unknown Uncoded 02/19/19 23:19 Consultations 02/19/19 22:49 ED Decision to Admit Stat 02/20/19 01:20 Consult Case Management - Discharge Planning Routine Consult General Surgery Routine Ordered Studies 02/19/19 20:42 CT abd pelvis wo con Stat CT chest wo con Stat Hospital Course (1) Hiatal hernia: - CT with markedly distended gas and fluid filled stomach within the large hiatus hernia with gastric antrum and proximal duodenum below level of diaphragm which are also gas-filled -- Second portion of duodenum is decompressed - does not clearly represent a transition point as there is mildly distended gas filled loops throughout abdomen but may need considered -- Small cluster of ground glass opacity - possible inflammatory changes vs infectious -- Concern for ileus vs gastric outlet obstruction due to hernia - KUB on 02/22 shows no obvious transition point and no bowel obstruction - Continues to move bowels and tolerated advancement of diet to her normal intake - Gen Surg followed - signed off at this time (2) Dehydration: - Lactic was 2.6 on admission but is now normal after hydration supporting more of a dehydration picture - BP stable- will monitor for development of aspiration pneumonia given CT findings however is not favoring an infectious etiology at this time - remains afebrile, no leukocytosis, and no respiratory compromise (3) Severe dementia: - Baseline is largely nonverbal but very interactive with family members and more verbal and smiling with staff members over the past couple days. Largely sleeping today and appears to have her days/nights mixed up from poor sleep while hospitalized - Does wake up during my assessment and smiles but easily goes back to sleep Total Time Total Time Spent Total Time Spent (In Minutes): Greater than 30 minutes Discharge Plan Discharge Items Patient Disposition: Home - Self-Care Reason For Visit: INTRACTABLE VOMITING Discharge Diagnosis: Bowel Obstruction vs Gastric Outlet Obstruction with Vomiting Activity: Resume your previous activity Non-emergency contact: Primary Care Provider Call non-emergency contact if: you have any medication questions, your symptoms worsen and you have a fever Follow-up/Referrals: Richelle Corey [Primary Care Provider] - Diet: Gluten Free Addtl Attending Provider Instructions: Hiatal Hernia with Bowel Obstruction vs Gastric Outlet Obstruction: - The CAT scan shows a large hiatal hernia and likely contributed to the obstruction. Given the CT findings we do question if this was more the gastric obstruction meaning that the stomach was the place things back up from. This can happen as the stomach is displaced due to her hiatal hernia. - There is not a good way to prevent this from happening other then surgery which is a pretty involved surgery as it involves the abdomen and chest. - You are doing all the right things at home to help prevent complications with having a hiatal hernia. - Keeping her sitting upright during and at least 20-30 minutes after meals. Small more frequent meals throughout the day. - Keeping her active to help prevent constipation and keeping hydrated are all things to continue. - There is no dietary restrictions for her at this time. Hopefully this was just a one time thing for her. However, if she develops similar symptoms. Hold food and drink and have her evaluated by a doctor. - As well, we have not gotten any fevers on her and her white blood cell count (what we look at to help determine infection) has been normal - she could have gotten some vomit in her lungs but no signs that this has developed into a pneumonia and her body is taking care of it. -- If she would develop fever, cough, needing more oxygen please get this evaluated as well. Do not anticipate this would be an issue but it is also the time of year when the flu will be starting and pneumonias. Pending Studies at Discharge: No Stand-Alone Forms: My [facility], Smoking Cessation Medications and DC Order Prescriptions: Continued progesterone micronized 4 % Gel 4 % VAGINAL BID RF: 0 estradiol 0.01 % (0.1 mg/gram) Cream 1 g VAGINAL DAILY RF: 0 Discharge Orders: Discharge Order (Routine); Ordered 02/24/19 Ordered By: Vivian Thomas Admission Data Admit Date/Time: 02/20/19 00:22 Attending Provider: Shalom Sim Admit Provider: Geraldo Crowder Primary Care Provider: Richelle Corey Other Providers: Ranch[place] Piña ; Ameya Zavala. Other Interventions: Discharge Summary Assessment (RN) Last Done: 02/24/19 13:34 DC Date/Time DO NOT enter until pt leaves facility: 02/24/19 15:34 Supervising Physician Co-Signing Physician Notes Attending note: patient seen and examined with Vivian Thomas PA-C. I agree with her discharge summary. I personally reviewed the labs and imaging findings. patient resting comfortably, actually really tired today due to not sleeping much the past two nights eating well, no further abdominal pain, moving bowels, no vomiting updated family at the bedside - Abdominal pain, nausea secondary to large hiatal hernia vs ileus symptoms resolved with conservative measures, she and family would not want any type of surgical intervention if it was required tolerating diet will allow her to go home with family
== END 2019-02-24 15:34 | disposition home or self-care (01) | DRG 382 ==
LOC: ED 17:58 → SUATTDRO 02-20 00:22 → 3N 02-20 00:22